=== PATIENT | female | born 1960 | race Caucasian/White ===

== ENCOUNTER 2020-10-12 09:03 | Outpatient (REF) | payer OTHER, SELFPAY | END 2020-10-12 09:04 | disposition home or self-care (01) | LOC: HO.LAB 09:03 | PROVIDERS: Visit Provider Internal Medicine | DX: Z20.822 Contact with and (suspected) exposure to COVID-19 (principal) | CPT/HCPCS: C9803; U0003; U0005 ==

== ENCOUNTER 2022-05-24 19:05 | Emergency (ER) | payer OTHER, SELFPAY ==
[2022-05-24 19:46] VITALS: BP 118/75; PULSE 99; RESP 18; TEMP 37.7; O2SAT 96; BMI 31.1
--- NOTE | 2022-05-24 19:46 | ED.GENADULT ---
HPI - General Adult General Chief complaint: Upper Respiratory Symptoms Stated complaint: Diff breathing Time Seen by Provider: 05/24/22 22:01 Source: patient Mode of arrival: ambulatory Limitations: no limitations History of Present Illness HPI narrative: 62 year old female presents w/ fever ( Tmax 100F), dry cough, chills, headache (diffuse, feels like typical headache, no vision changes, no dizziness, no trauma). Sister sick with similar sx. Denies chest pain, shortness of breath, nausea, vomiting, abdominal pain, vision changes, dizziness, head trauma, weakness. Thinks she has the flu Related Data Previous Rx's Medication Instructions Recorded albuterol sulfate 90 mcg/actuation 2 puff inhalation Q6H PRN 05/24/22 aerosol inhaler shortness of breath or wheezing #8.5 grams oseltamivir 75 mg capsule (Tamiflu) 75 mg PO BID 5 days #10 caps 05/24/22 prednisone 20 mg tablet 40 mg PO DAILY 5 days #10 tabs 05/24/22 Allergies Allergy/AdvReac Type Severity Reaction Status Date / Time No Known Allergies Allergy Unverified 02/13/20 15:50 [No Known Allergies*] Review of Systems Review of Systems: Constitutional : No Weight loss, + Fever, + Chills, + Fatigue, + Malaise ENT/Mouth : No sore throat, No Rhinorrhea Eyes: No Eye Pain, No Swelling, No Redness Cardiovascular : No Chest Pain, No SOB, No Dyspnea on Exertion, No Orthopnea, No Edema, No Palpitations Respiratory : + Cough, No Sputum, No Wheezing Gastrointestinal : No Nausea, No Vomiting, No Diarrhea, No Constipation, No abdominal Pain, No Hematochezia, No Melena Genitourinary : No Dysuria, No Urinary Frequency, No Hematuria, Musculoskeletal : No joint pain, No Myalgias, No Joint Swelling Skin : No Skin Lesions, No rash Neuro : No Weakness, No Numbness, No Dizziness, + Headache Psych : No Anxiety/Panic, No Depression All other systems reviewed and are negative Yes all other systems are reviewed and are negative [facility] Past Medical History Attestation statement: The following information was validated with the patient. Source: old records reviewed and nursing notes reviewed Social History Social History Advance Directives: No Advance Directives Information Provided: No Physical Exam ED Vital Signs: Vital Signs - 24 hr 05/24/22 19:46 05/24/22 21:39 05/24/22 21:52 Temperature 99.8 F Pulse Rate 99 105 H 104 H Respiratory Rate 18 18 18 Blood Pressure 118/75 115/76 Pulse Oximetry 96 95 Oxygen Delivery Method Room Air BMI result Body Mass Index 31.1 Vital signs stable Appearance: Alert.? Oriented X3.? No acute distress.? Head: Normocephalic, atraumatic, no step-offs or deformities Eyes: Pupils equal, round and reactive to light.? ENT: Pharynx normal.? Neck: Normal inspection.? Neck supple.? CVS: Normal heart rate and rhythm.? Pulses normal.? Respiratory: No respiratory distress.? Breath sounds normal.? Abdomen: Soft and nontender.? Skin: Skin warm and dry.? Normal skin color.? Normal skin turgor.? Extremities: No lower extremity edema.? No calf ttp. 5/5 strength to bilateral upper and lower extremities Neuro: Oriented X 3.? No motor deficit.? No sensory deficit. CN 2-12 intact . Ambulating with steady gait. Normal [id number], [id number]. Normal coordination. Negative Romberg. NIH stroke scale 0 Course Course Course Narrative: 1944 62 year old female presents w/ fever ( Tmax 100F), cough, chills, headache ( feels like typical headache, no vision changes, dizziness, no trauma). Sister sick with similar sx PE faint expiratory wheezing Plan viral panel Reevaluation(s) Reevaluation #1: Patient noted to be positive for COVID. Will send albuterol to her pharmacy. Advised to return with new or worsening symptoms. Tamiflu sent to her pharmacy. Educated patient on diagnosis and treatment plan, answered all question, patient verbalizes understanding. At this time patient will be discharged home, advised to return with new or worsening symptoms. Educated on worrisome signs and symptoms and when to return. At this time I feel comfortable w/ discharge home. At time of discharge patient feeling well. Vital signs stable saturating 96% on room air Time: 21:40 Medications Administered Discontinued Medications Generic Name Dose Route Start Last Admin Trade Name Freq PRN Reason Stop Dose Admin Albuterol Sulfate 7.5 mg/ 10 mg 05/24/22 19:50 05/24/22 21:51 Albuterol Sulfate 2.5 mg INHALE 05/24/22 19:51 10 mg ONCE ONE Administration Medical Decision Making Medical Decision Making [facility] Narrative: [birth year] 62-year-old female presents with flu-like symptoms. Reports sister with similar symptoms. Denies chest pain or shortness of breath. Physical examination with slight expiratory wheezing however vital signs stable and hemodynamically stable, patient appears well no acute distress. Headache likely secondary to viral infection, I do not suspect meningitis, intracranial hemorrhage, stroke, posterior stroke. Viral panel was obtained in triage Lab Data Labs: Lab Results 05/24/22 Range/Units 20:11 Influenza Type A (PCR) POSITIVE A (Negative) Influenza Type B (PCR) NEGATIVE (Negative) RSV RNA Qual (PCR) NEGATIVE (Negative) SARS-CoV-2 RNA (RT-PCR) NEGATIVE (Negative) Critical Care Time Critical Care Time Critical Care Time: No Discharge Plan Discharge Clinical Impression: Influenza Patient Disposition: Home, Self-Care Instructions: Influenza (ED) Additional Instructions: Take your medications as prescribed. If you were prescribed antibiotics today, it is important that you take your medication to their entirety, do not skip any doses, do not finish them early. Follow-up with your primary care provider this week. Return to the emergency department with new or worsening symptoms. Such as fevers, chills, chest pain, shortness of breath, nausea, vomiting, dizziness, headache, vision changes, lethargy In case of emergency call 911 Your contagious!. Wash your hands well. Hydrate well. Eat healthy foods. You can take ibuprofen every 6 hours, Tylenol every 4 hours as needed for pain or discomfort or fevers Prescriptions: New oseltamivir [Tamiflu] 75 mg capsule 75 mg PO BID 5 Days Qty: 10 0RF albuterol sulfate 90 mcg/actuation HFA aerosol inhaler 2 puff inhalation Q6H PRN (Reason: shortness of breath or wheezing) Qty: 8.5 0RF prednisone 20 mg tablet 40 mg PO DAILY 5 Days Qty: 10 0RF Referrals: Lorna Nice MD [Primary Care Provider] - 2 days Stand Alone Forms: Work/School Release
[2022-05-24 21:04] LABS: Influenza A PCR POSITIVE (Negative); Influenza B PCR NEGATIVE (Negative); Resp Syncy Virus RNA Qual PCR NEGATIVE (Negative); SARS COV2 PCR INHOUSE NEGATIVE (Negative)
[2022-05-24 21:39] VITALS: BP 115/76; PULSE 105; RESP 18; O2SAT 95
[2022-05-24] MEDS: Albuterol Sulfate 7.5 MG, Albuterol Sulfate (0.083%) 2.5 MG 10 MG INHALE (21:51)
[2022-05-24 21:52] VITALS: PULSE 104; RESP 18
== END 2022-05-24 22:42 | disposition home or self-care (01) ==
PROVIDERS: Physician Assistant; Emergency Provider Internal Medicine; PCP Internal Medicine
DX: J10.1 Influenza due to other identified influenza virus with other respiratory manifestations (principal); R06.02 Shortness of breath; R05.9 Cough, unspecified; Z20.822 Contact with and (suspected) exposure to COVID-19
CPT/HCPCS: 0241U; 94640; 99283; 99284

== ENCOUNTER 2022-05-25 07:04 | Inpatient (IN) | payer OTHER, SELFPAY ==
[2022-05-25] VITALS (7 sets, daily range): BP systolic 120–148; BP diastolic 58–92; PULSE 54–110; RESP 14–22; TEMP 36.5–37.2; O2SAT 96–100; BMI 32.0; BMI 33.2
--- NOTE | ~2022-05-25 | XR_ITS ---
EXAMINATION: XR CHEST CLINICAL INFORMATION: Shortness of breath COMPARISON: Previous chest x-ray most recent June 2019 TECHNIQUE: Frontal view of the chest was obtained. FINDINGS: The cardiac silhouette is enlarged. There is pulmonary venous redistribution and increased perihilar markings. There may be a denser hilar airspace disease at the right lung base. Differential would include pulmonary edema and airways disease. There may be a small right pleural effusion. There is no left pleural effusion. There is no pneumothorax. No acute bone abnormality. XR/XR chest 1V IMPRESSION: Question mild CHF. Differential would include airways disease. Clinical correlation recommended.
--- NOTE | 2022-05-25 07:18 | ECG_ITS ---
Test Reason : sob Blood Pressure : / mmHG Vent. Rate : 112 BPM Atrial Rate : 112 BPM P-R Int : 150 ms QRS Dur : 100 ms QT Int : 340 ms P-R-T Axes : 050 001 064 degrees QTc Int : 464 ms Sinus tachycardia Minimal voltage criteria for LVH, may be normal variant ( Thong product ) Borderline ECG When compared to the previous EKG of No significant changes seen Referred By: Anika Shepherd Electronically Signed By:RE ARTHUR MD
--- NOTE | 2022-05-25 07:19 | ED_ITS ---
HPI - SOB/Dyspnea General Chief Complaint: Upper Respiratory Symptoms Stated Complaint: sob, FLU+ Time Seen by Provider: 05/25/22 07:14 Source: patient Mode of arrival: EMS History of Present Illness HPI Narrative: 62-year-old female who presents via EMS this morning after being diagnosed with influenza a last night with significant increasing of shortness of breath and increased work of breathing. Patient states that ?I do not feel well and I was unable to berry picker the medications a were ordered for me last night?. She denies any chest pain but states that she does take Lasix. Related Data Home Medications Medication Instructions Recorded Confirmed acetaminophen 325 mg tablet 650 mg PO Q6H PRN Pain 05/25/22 05/25/22 (Tylenol) carvedilol 6.25 mg tablet 1 tab PO BID 05/25/22 05/25/22 furosemide 20 mg tablet 1 tab PO DAILY PRN Weight Gain or 05/25/22 05/25/22 shortness of breath rosuvastatin 40 mg tablet 1 tab PO DAILY 05/25/22 05/25/22 sacubitril 24 mg-valsartan 26 mg 1 tab PO BID 05/25/22 05/25/22 tablet (Entresto) spironolactone 25 mg tablet 1 tab PO DAILY 05/25/22 05/25/22 Previous Rx's Medication Instructions Recorded albuterol sulfate 90 mcg/actuation 2 puff inhalation Q6H PRN 05/24/22 aerosol inhaler shortness of breath or wheezing #8.5 grams oseltamivir 75 mg capsule (Tamiflu) 75 mg PO BID 5 days #10 caps 05/24/22 prednisone 20 mg tablet 40 mg PO DAILY 5 days #10 tabs 05/24/22 Allergies Allergy/AdvReac Type Severity Reaction Status Date / Time No Known Allergies Allergy Unverified 02/13/20 15:50 [No Known Allergies*] Review of Systems Review of Systems: Pertinent positives and negatives as stated in HPI PMFSH Past Medical History Source: nursing notes reviewed Social History Social History Advance Directives: No Advance Directives Information Provided: No Physical Exam Vital Signs: Vital Signs: Last Vital Signs Temp 99.0 F 05/25/22 07:15 Pulse 110 H 05/25/22 07:15 Resp 20 05/25/22 07:15 BP 148/92 H 05/25/22 07:15 Pulse Ox 96 05/25/22 07:15 O2 Del Method 05/25/22 07:15 BMI result Body Mass Index 32.0 VITAL SIGNS: Reviewed. GENERAL: Well developed, well nourished, in no acute distress. HEAD: Normocephalic/atraumatic EYES: PERRLA, EOMI EARS: Ext canals without abnormality OROPHARYNX: no oral lesions noted, posterior pharynx clear LUNGS: Decreased breath sounds bilaterally with coarse rales and scattered expiratory wheeze, tachypnea present with significant increased work of breathing. SpO2<96> 2 L nasal cannula CARDIOVASCULAR: Regular rate and rhythm without noted murmurs, no JVD but 1+ pitting edema in bilateral lower extremities. ABDOMEN: Soft, non-tender, non-distended with bowel sounds. SKIN: Inspection of the skin reveals no rashes NEUROLOGIC: Alert and oriented x 4. Strength and sensation to light touch were grossly intact x 4. Course Course Course Narrative: 62-year-old female who I reviewed her lab work and she is noted to have a BNP of over 2000 with a positive chest x-ray and clinical findings to further corroborate severe CHF exacerbation. She already received diuretics, is feeling better with supplemental oxygen but remains mildly tachycardic. Otherwise labs are chronically stable and the noted troponin of 40.4 was repeated and remains flat and is likely reflective of patient's underlying influenza a and CHF exacerbation. She denies any current chest pain. This case was discussed with inpatient hospitalist who accepts admission. Medications Administered Discontinued Medications Generic Name Dose Route Start Last Admin Trade Name Freq PRN Reason Stop Dose Admin Furosemide 60 mg 05/25/22 07:18 05/25/22 07:35 Furosemide 100 Mg/10 Ml Vial IVPUSH 05/25/22 07:19 60 mg ONCE ONE Administration Protocol Oseltamivir Phosphate 75 mg 05/25/22 08:37 05/25/22 08:45 Oseltamivir Phosphate 75 Mg Capsule PO 05/25/22 08:38 75 mg ONCE ONE Administration Medical Decision Making Medical Decision Making MDM Narrative: 62-year-old female with recent diagnosis of influenza a and suspect that symptoms and respiratory aspect of this viral illness may have exacerbated patient's underlying CHF. She was immediately placed on 2 L of nasal cannula and given 60 mg of Lasix after IV access was obtained. Labs and x-ray were then ordered. Differential Diagnosis Differential Diagnoses: The differential diagnosis associated with the presentation includes Pneumonia, CHF exacerbation Admission/Observation Consideration of admission/observation: Escalation of care including admission/observation considered Will consider admission due to underlying medical comorbidities in the context influenza a infection. Consult Healthcare Provider Management of the patient was discussed with: Hospitalist I discussed this case with Hospital given the degree of patient's symptoms and CHF exacerbation Lab Data MDM Lab Attestation statement: I reviewed the patient's lab results. Please see course Section for discussion. Result Diagrams: 05/25/22 07:31 05/25/22 07:31 Labs: Lab Results 05/25/22 05/25/22 05/25/22 Range/Units 07:31 07:31 07:31 WBC 6.6 (4.8-10.8) X10*3/uL RBC 3.63 L (4.20-5.50) X10*6/uL Hgb 9.9 L (12.0-16.0) g/dl Hct 31.6 L (37.0-47.0) % MCV 87.1 (80.0-98.0) fL MCH 27.3 (27.0-33.0) pg MCHC 31.3 (31.0-35.0) g/dl RDW 14.5 (11.0-16.0) % Plt Count 216 (160-400) X10*3/uL MPV 9.5 (9.4-12.3) fL Immature Gran % (Auto) 0.3 (0.0-0.4) % Neut % (Auto) 81.7 H (45-73) % Lymph % (Auto) 10.1 L (20-40) % [place] % (Auto) 7.2 (2-11) % Eos % (Auto) 0.2 (0-4) % Baso % (Auto) 0.5 (0-2) % Lymph # (Auto) 0.7 L (1.2-4.9) X10*3/uL [place] # (Auto) 0.5 (0.1-1.2) X10*3/uL Eos # (Auto) 0.0 (0.0-0.4) X10*3/uL Baso # (Auto) 0.0 (0.0-0.2) X10*3/uL Abs Immat Gran (auto) 0.02 (0.00-0.03) X10*3/uL Absolute Neuts (auto) 5.4 (2.0-8.3) x10*3/uL Absolute Nucleated RBC 0.000 (0.0-0.012) X10*3/uL Nucleated RBC % (auto) 0.0 (0.0-0.2) /100WBC PT 16.1 H (10.0-13.1) SEC INR 1.4 H (0.9-1.1) Sodium (135-145) mmol/L Potassium (3.3-5.1) mmol/L Chloride (96-108) mmol/L Carbon Dioxide (22-29) mmol/L Anion Gap (12-20) BUN (9-16) mg/dL Creatinine (0.5-1.4) mg/dL Estim Creat Clear Calc Estimated GFR Random Glucose (60-115) mg/dL Calcium (8.4-10.2) mg/dL Total Bilirubin (0.0-1.0) mg/dL AST (5-31) U/L ALT (0-31) U/L Alkaline Phosphatase (39-117) U/L Troponin I High Sens (<3.5-17.0) ng/L B-Natriuretic Peptide 2066 H (<100) pg/mL Total Protein (6.5-8.0) g/dL Albumin (3.5-5.0) g/dL 05/25/22 05/25/22 05/25/22 Range/Units 07:31 07:31 08:41 WBC (4.8-10.8) X10*3/uL RBC (4.20-5.50) X10*6/uL Hgb (12.0-16.0) g/dl Hct (37.0-47.0) % MCV (80.0-98.0) fL MCH (27.0-33.0) pg MCHC (31.0-35.0) g/dl RDW (11.0-16.0) % Plt Count (160-400) X10*3/uL MPV (9.4-12.3) fL Immature Gran % (Auto) (0.0-0.4) % Neut % (Auto) (45-73) % Lymph % (Auto) (20-40) % [place] % (Auto) (2-11) % Eos % (Auto) (0-4) % Baso % (Auto) (0-2) % Lymph # (Auto) (1.2-4.9) X10*3/uL [place] # (Auto) (0.1-1.2) X10*3/uL Eos # (Auto) (0.0-0.4) X10*3/uL Baso # (Auto) (0.0-0.2) X10*3/uL Abs Immat Gran (auto) (0.00-0.03) X10*3/uL Absolute Neuts (auto) (2.0-8.3) x10*3/uL Absolute Nucleated RBC (0.0-0.012) X10*3/uL Nucleated RBC % (auto) (0.0-0.2) /100WBC PT (10.0-13.1) SEC INR (0.9-1.1) Sodium 139 (135-145) mmol/L Potassium 3.9 (3.3-5.1) mmol/L Chloride 106 (96-108) mmol/L Carbon Dioxide 24 (22-29) mmol/L Anion Gap 13 (12-20) BUN 14 (9-16) mg/dL Creatinine 1.11 (0.5-1.4) mg/dL Estim Creat Clear Calc 51.9 Estimated GFR 50 Random Glucose 135 H (60-115) mg/dL Calcium 8.5 (8.4-10.2) mg/dL Total Bilirubin 0.9 (0.0-1.0) mg/dL AST 48 H (5-31) U/L ALT 70 H (0-31) U/L Alkaline Phosphatase 74 (39-117) U/L Troponin I High Sens 40.4 H 48.2 H (<3.5-17.0) ng/L B-Natriuretic Peptide (<100) pg/mL Total Protein 7.0 (6.5-8.0) g/dL Albumin 4.0 (3.5-5.0) g/dL Independent Interpretation I performed an independent interpretation of an: EKG Interpretation: Sinus tachycardia, HR-112, no STEMI, DC/QRS/QTC are within normal limits. Radiology Impression Radiologist Impression: My interpretation is in agreement with radiology's impression imaging study. External Record Review External record reviewed: Outpatient record and Prior outpatient labs Critical Care Time Critical Care Time Critical Care Time: Yes Total Critical Care Time: 45 Attestation: I personally attest to this time spent taking care of the patient. Discharge Plan Discharge Clinical Impression: CHF exacerbation, Viral syndrome, Influenza A Patient Disposition: Admitted As Inpatient
[2022-05-25 07:35] LABS: MANUAL DIFF FLAG NO
[2022-05-25] MEDS: Furosemide 100 MG/10 ML VIAL 60 MG IVPUSH (07:35)
[2022-05-25 07:38] LABS: Basophils Percent Auto 0.5 % (0-2); Eosinophils Percent Auto 0.2 % (0-4); Hematocrit 31.6 % (37.0-47.0); Hemoglobin 9.9 g/dl (12.0-16.0); Imm Gran Abs Auto 0.02 X10*3/uL (0.00-0.03); Imm Gran Pct Auto 0.3 % (0.0-0.4); Lymphocytes Absolute Auto 0.7 X10*3/uL (1.2-4.9); Lymphocytes Percent Auto 10.1 % (20-40); Mean Corpuscular HGB Conc 31.3 g/dl (31.0-35.0); Mean Corpuscular Hemoglobin 27.3 pg (27.0-33.0); Mean Corpuscular Volume 87.1 fL (80.0-98.0); Mean Platelet Volume 9.5 fL (9.4-12.3); Monocytes Absolute Auto 0.5 X10*3/uL (0.1-1.2); Monocytes Percent Auto 7.2 % (2-11); Neutrophils Absolute Auto 5.4 x10*3/uL (2.0-8.3); Neutrophils Percent Auto 81.7 % (45-73); Platelet Count 216 X10*3/uL (160-400); Red Blood Count 3.63 X10*6/uL (4.20-5.50); Red Cell Distribution Width 14.5 % (11.0-16.0); White Blood Count 6.6 X10*3/uL (4.8-10.8)
[2022-05-25 07:58] LABS: INTERNATIONAL NORM RATIO 1.4 (0.9-1.1); Prothrombin Time 16.1 SEC (10.0-13.1)
[2022-05-25 08:08] LABS: Alanine Aminotransferase 70 U/L (0-31); Alkaline Phosphatase 74 U/L (39-117); Anion Gap 13 (12-20); Aspartate Amino Transferase 48 U/L (5-31); Bilirubin Total 0.9 mg/dL (0.0-1.0); Blood Urea Nitrogen 14 mg/dL (9-16); Calcium 8.5 mg/dL (8.4-10.2); Carbon Dioxide 24 mmol/L (22-29); Chloride 106 mmol/L (96-108); Creatinine Clr Calc Pharmacy 51.9; Estimated Glomerular Filt Rate 50; Glucose Random 135 mg/dL (60-115); Potassium 3.9 mmol/L (3.3-5.1); Sodium 139 mmol/L (135-145)
[2022-05-25 08:09] LABS: B Type Natriuretic Peptide 2066 pg/mL (<100)
[2022-05-25 08:12] LABS: Troponin-I High Sensitivity 40.4 ng/L (<3.5-17.0)
[2022-05-25] MEDS: Oseltamivir Phosphate 75 MG CAPSULE PO (08:45)
[2022-05-25 09:11] LABS: Troponin-I High Sensitivity 48.2 ng/L (<3.5-17.0)
--- NOTE | 2022-05-25 09:26 | PHA.MEDREC ---
Addendum entered by Valdo Acevedo 05/25/22 09:39: WENT TO GO TALK TO PATIENT AGAIN FOR CLARIFICATIONS AFTER PHARMACY CALL. PATIENT ADMITS TO NOT BEING ADHERENT TO ROSUVASTATIN MEDICATION. STATES PHARMACY 40MG AUGUST 2021 DOSE IS CORRECT. Original Note: Pharmacy Consult ? Medication Reconciliation Pharmacy has completed the medication reconciliation. Patient hasn't picked up or taken tamiflu, prednisone, and albuterol at time of note. Patient also states that they are on rosuvastatin 10mg daily, however no claim history to support. Called pharmacy and they state patient was on rosuvastatin 40mg daily back in august 2021, but no recent fills since then.
--- NOTE | 2022-05-25 11:16 | P.HPHOSP_ITS ---
History of Present Illness Date of Service: 05/25/22 Chief Complaint: shortness of breath This is a 62 yo F with a PMH of CHF, HTN, HLD who presents to the ED for the second time in 2 days (pt presented to the ED day [employer] and was diagnosed with influenza and discharged home with tamiflu, albuterol and prednisone) complaints of shortness of breath and generalized malaise. The patient states that 2 days prior to admission, she began feeling unwell. It started with a headache, progressed to body aches and eventually to shortness of breath. She endorsed fevers (objectively - measured 102 at home) and chills. Reports non-productive cough. She reports no sick contacnts. Upon specific questioning about the shortness of breath, she endorses that she has actually been having trouble breathing (particularly in the supine position) even prior to the recent illness. She states that she has been recently re-started on lasix (was on it after her diagnosis of CHF in 2017, but was taken off at some point and was restarted about 2 weeks ago). She reports weight gain of at least 5 lbs - unclear duration. She denies chest pain. She does report PND and non-productive cough. She denies dietary indiscretion (even during the holiday season) and reports she generally eats a low salt diet. ED work up reveals a BNP > 2000 and a CXR consistent with CHF. She has been given tamiflu and total IV lasix 60. She continues to feel short of breath with increased RR and tachycardia. She is on supplemental O2 at 2L. She will be admitted for acute CHF exacerbation. Review of Systems Review of Systems: negative except HPI [facility] Medical History (Updated 05/25/22 @ 19:02 by Rene Dubose MD) CHF (congestive heart failure) Hyperlipidemia Hypertension Pertinent family history: CAD in mother Cancer ( ? head/neck) in father Surgical History (Updated 05/25/22 @ 19:02 by Rene Dubose MD) No pertinent past surgical history Social History (Updated 05/25/22 @ 19:03 by Rene Dubose MD) Alcohol intake: never Patient Tobacco Use Status: Former Tobacco user Quit Date: Use of substances other than those prescribed or required for medical reasons: No Advance Directives: No Advance Directives Information Provided: No Meds Allergies Allergy/AdvReac Type Severity Reaction Status Date / Time No Known Allergies Allergy Unverified 02/13/20 15:50 [No Known Allergies*] Active Medications: Current Medications Pharmacy Consult (Consult Rx Perform Med Rec) 1 each MISCELLANE ONCE PRN PRN Reason: Consult order Home Medications Medication Instructions Recorded Confirmed Last Taken Type acetaminophen 325 mg tablet 650 mg PO Q6H PRN Pain 05/25/22 05/25/22 Unknown History (Tylenol) carvedilol 6.25 mg tablet 1 tab PO BID 05/25/22 05/25/22 05/24/22 History furosemide 20 mg tablet 1 tab PO DAILY PRN Weight Gain or 05/25/22 05/25/22 05/24/22 History shortness of breath rosuvastatin 40 mg tablet 1 tab PO DAILY 05/25/22 05/25/22 Unknown History sacubitril 24 mg-valsartan 26 mg 1 tab PO BID 05/25/22 05/25/22 05/24/22 History tablet (Entresto) spironolactone 25 mg tablet 1 tab PO DAILY 05/25/22 05/25/22 05/24/22 History Physical Exam Vital Signs and Narrative: Vital Signs: Last Vital Signs Temp 99.0 F 05/25/22 07:15 Pulse 106 H 05/25/22 11:11 Resp 14 05/25/22 11:11 BP 132/67 05/25/22 11:11 Pulse Ox 96 05/25/22 11:11 O2 Del Method 05/25/22 07:15 BMI result Body Mass Index 32.0 Const: Other: Constitutional - Awake and Alert, comfortable in sitting position with increased discomfort in supine Eyes - PERRLA, EOMI Cardiovascular - S1S2, RRR, +JVD, 2+ b/l LE edema; unable to lay in the supine position Respiratory - Rales b/l in the lower zones; scattered rhonchi Gastrointestinal - NT / ND; +BS; No rebound or guarding - No CVA tenderness Extremities - no calf tenderness bilaterally Musculoskeletal - Normal inspection, normal ROM Skin - Warm/Dry Neurological - Alert & oriented x3, No focal deficit Psychological - Appropriate affect Results Labs CBC and Chem 7: 05/25/22 07:31 05/25/22 07:31 Labs: Laboratory Results - last 24 hr 05/25/22 05/25/22 05/25/22 07:31 07:31 07:31 MCV 87.1 MCH 27.3 MCHC 31.3 RDW 14.5 Plt Count 216 MPV 9.5 Immature Gran % (Auto) 0.3 Neut % (Auto) 81.7 H Lymph % (Auto) 10.1 L [place] % (Auto) 7.2 Eos % (Auto) 0.2 Baso % (Auto) 0.5 Lymph # (Auto) 0.7 L [place] # (Auto) 0.5 Eos # (Auto) 0.0 Baso # (Auto) 0.0 Abs Immat Gran (auto) 0.02 Absolute Neuts (auto) 5.4 Absolute Nucleated RBC 0.000 Nucleated RBC % (auto) 0.0 PT 16.1 H INR 1.4 H Anion Gap Estim Creat Clear Calc Estimated GFR Random Glucose Calcium Total Bilirubin AST ALT Alkaline Phosphatase Troponin I High Sens B-Natriuretic Peptide 2066 H Total Protein Albumin 05/25/22 05/25/22 05/25/22 07:31 07:31 08:41 MCV MCH MCHC RDW Plt Count MPV Immature Gran % (Auto) Neut % (Auto) Lymph % (Auto) [place] % (Auto) Eos % (Auto) Baso % (Auto) Lymph # (Auto) [place] # (Auto) Eos # (Auto) Baso # (Auto) Abs Immat Gran (auto) Absolute Neuts (auto) Absolute Nucleated RBC Nucleated RBC % (auto) PT INR Anion Gap 13 Estim Creat Clear Calc 51.9 Estimated GFR 50 Random Glucose 135 H Calcium 8.5 Total Bilirubin 0.9 AST 48 H ALT 70 H Alkaline Phosphatase 74 Troponin I High Sens 40.4 H 48.2 H B-Natriuretic Peptide Total Protein 7.0 Albumin 4.0 Imaging Radiologist's Impressions: Impressions Chest X-Ray 05/25/22 08:02 IMPRESSION: Question mild CHF. Differential would include airways disease. Clinical correlation recommended. Assessment and Plan (1) CHF exacerbation: Status: Acute Plan This is a 62 yo F who presents to the ED in less than 24 hours after initially presenting for shortness of breath. She was diagnosed with influenza and not is exhibiting signs and symptoms of acute CHF exacerbation. She will be admitted for further treatment. 1. Acute CHF (unspecified) exacerbation suspected systolic CHF, but pt endorses last echo > 1 year, hence will check echo on lasix 20mg daily at home -- will increase to 40mg IV BID I/O; daily weights if not improving, consider cardiology consult low salt diet hold coreg today, restart once CHF improved continue entresto/aldactone 2. Influenza A infection symptoms started about 48 hours ago -- will continue tamiflu (renally dosed -- ClCr less than 60, if improves, change to regular dose) 3. HTN continue baseline meds; hold coreg 4. HLD statin 5. Obesity diet/exercise encouraged Full Code DVT pptx, Marichuy Endorses daughter as HCP Time Spent With Patient Time: Total time managing care of this patient today ____ minutes. Quality Stroke Does the patient have a stroke diagnosis?: No VTE Prior VTE?: No VTE Risk Level:: Medical - moderate - high VTE Device Contraindication: Treatment Not Indicated VTE Drug Contraindication: N/A - Med Ordered
--- NOTE | 2022-05-25 12:00 | CA_ITS ---
Transthoracic Echocardiogram Patient (Last, First, Middle): Ines Young, Gender: Female Date of : 1960 Age: 62 Procedure Date: 05/25/2022 Procedure Type: Transthoracic Echocardiogram Location[place] [facility] [place] Height: 157.48 cm Weight: 79.38 kg BSA: 1.81 m2 Heart Rate: bpm BP: 132 / 67 mmHg Tip Mender: Referring MD: Rene Dubose MD Headliner Installer: Anthony Worthington MD Symptoms: CHF, to eval LV function; last echo > 1 year ago Study Quality: Adequate ECG Rhythm: Sinus Conclusions: - 1. Severely dilated left ventricle with severe LV systolic dysfunction with LVEF of 15-20% with restrictive filling pattern 2. Moderately dilated right ventricle with normal RV systolic function 3. Biatrial enlargement, left greater than right 4. Severe mitral regurgitation secondary to ventricular pathology 5. Moderate tricuspid regurgitation with moderately elevated right ventricular systolic pressure 6. No gross pericardial effusion Findings Left Ventricle Severely increased left ventricular cavity size. The left ventricular systolic function is severely decreased. The visually estimated ejection fraction is between 15-20%. There is severe global hypokinesis. Spectral Doppler is indicative of a restrictive filling pattern. Right Ventricle Moderately increased right ventricular cavity size. There is normal right ventricular systolic function. Atria The left atrium is moderately dilated. There is no evidence of interatrial shunt. The right atrium is mildly dilated. Aortic Valve Normal aortic valve structure and function. There is no aortic valve stenosis. There is no aortic valve regurgitation. Mitral Valve There is mild anterior and posterior mitral leaflet thickening. There is severe mitral valve regurgitation. There is no mitral valve stenosis. Pulmonic Valve The pulmonic valve is likely normal. Tricuspid Valve Normal tricuspid valve structure. There is moderate to severe tricuspid valve regurgitation. Mildly elevated right atrial pressure. Moderate pulmonary hypertension is present. Great Vessels All visible segments of the aorta are normal in size. The pulmonary artery was not well visualized. Venous The inferior vena cava is mildly dilated and collapses less than 50% with inspiration. Pericardium/Pleural There is no evidence of pericardial effusion. Prior Study Comparison Changes noted compared to prior study dated: 10/08/2016. LV cavity is further dilated Measurements 2D Linear Measurements IVSd: 0.86 0.6-0.9/0.6-1.0 cm LVIDd: 7.32 3.9-5.3/4.2-5.9 cm LVIDd Index: 4.04 2.4-3.2/2.2-3.1 cm/m2 LVIDs: 6.38 2.0-3.6 cm LVPWd: 0.96 0.7-1.1 cm Ao Root: 2.60 2.1-3.5 cm LA Diam: 4.50 2.7-3.8/3.0-4.0 cm LAIDs Index: 2.49 1.5-2.3 cm/m2 LV Mass: 383.84 67-162/88-224 g LV Mass Index: 212.07 43-95/49-115 g/m2 LVOT Diam: 2.00 3.0+(-)1.3 cm 2D Systolic Function EF 4C: 21.10 >55% EF 2C: 16.60 >55% EF BiP: 15.90 >55% Mitral Valve MV Pk Prince: 4.83 MV Pk Grad: 93.00 MV Pk E: 1.35 MV PK A: 0.80 MV Decel Time: 110.00 E/A: 1.70 E'Lateral: 9.03 E'Medial: 5.44 E/E' Med: 24.80 E/E' Lat: 15.00 PHT: 32.00 MVA PHT: 6.88 Decel Miller: 12.27 MR Vol - PW Dopp: 40.92 MR VTI: 1.32 MR ERO: 31.00 MR Alias Prince: 0.37 MR RAD: 0.80 Aortic Valve AoV Pk Prince: 1.21 AoV Mn Prince: 0.82 AoV VTI: 0.20 AoV Pk Grad: 6.00 Aov Mn Grad: 3.00 JARET Cont.VTI: 2.02 LVOT LVOT Pk Prince: 0.88 LVOT Mn Prince: 0.56 LVOT VTI: 0.13 LVOT Pk Grad: 3.00 LVOT Mn Grad: 2.00 LVOT Diam: 2.00 LVOT Area: 3.14 Diastolic Function MV Pk E: 1.35 MV Pk A: 0.80 E/A: 1.70 E'Medial: 5.44 E/E' Med: 24.80 E' Laterial: 9.03 E/E' Lat: 15.00 Right Ventricle TAPSE (mm): 21.00 TVS' Prince: 11.00 Tricuspid Valve TR Pk Prince: 3.40 TR Pk Grad: 46.00 RA Press: 8.00 RVSP: 54.00 Great Vessels Aorta Ao Root-2D: 2.60 2.0-3.7 cm Ao Asc: 2.70 2.1-3.4 cm Pulmonary Valve PV Pk Prince: 1.07 Peak PV Grad: 5.00 Updated in Other Vendor System with Status of Final Anthony Worthington MD electronically signed on 05/25/2022 4:46:40 PM with status of Final
[2022-05-25] MEDS: Enoxaparin Sodium 40 MG/0.4 ML SYRINGE SUBCUT (12:08)
[2022-05-25] MEDS: Acetaminophen 325 MG TABLET 650 MG PO (12:08)
[2022-05-25] MEDS: 0.9 % Sodium Chloride Flush 3 ML SYRINGE IVFLUSH (15:30)
[2022-05-25] MEDS: Furosemide 40 MG/4 ML VIAL IVPUSH (17:41)
[2022-05-25 19:46] LABS: IDNOW Serial# BCCEAD1C; Influenza A Positive (Negative); Influenza B2 Negative (Negative)
[2022-05-25 19:47] LABS: COVID-19 Test Negative (Negative); IDNOW Serial# 55D5AD1C
--- NOTE | 2022-05-25 19:51 | PC.NURSE ---
report Received from ESTHER Recio pt is alert and oriented resting in bed no signs of acute distress notice breathing equally unlabored report given to ESTHER Romero
--- NOTE | 2022-05-25 21:13 | MHC.CM.PN ---
CM met with admitted patient with bed assignment/awaiting transfer. + Influenza. Lives alone. No DME. Has [employer] [facility] [employer] x[facility]. HCP at home. HCP/daughter Ines Agrawal ([phone]). D/C plan: home with existing [employer]. Pt to arrange transport. CM to follow for discharge planning.
[2022-05-25] MEDS: Sacubitril/Valsartan 24/26 1 TAB TABLET PO (21:23)
[2022-05-25] MEDS: Oseltamivir Phosphate 30 MG CAPSULE PO (21:24)
[2022-05-26 04:00] VITALS: BP 133/81; PULSE 95; RESP 18; TEMP 37.1; O2SAT 98
[2022-05-26 05:41] VITALS: BMI 33.0
[2022-05-26 07:09] LABS: Anion Gap 13 (12-20); Blood Urea Nitrogen 20 mg/dL (9-16); Calcium 8.9 mg/dL (8.4-10.2); Carbon Dioxide 28 mmol/L (22-29); Chloride 105 mmol/L (96-108); Creatinine Clr Calc Pharmacy 49.6; Estimated Glomerular Filt Rate 47; Glucose Random 91 mg/dL (60-115); Potassium 3.6 mmol/L (3.3-5.1); Sodium 142 mmol/L (135-145)
[2022-05-26] MEDS: Spironolactone 25 MG TABLET PO (08:38)
[2022-05-26] MEDS: Atorvastatin Calcium 80 MG TABLET PO (08:38)
[2022-05-26] MEDS: Furosemide 40 MG/4 ML VIAL IVPUSH ×2 (08:39→17:22)
[2022-05-26] MEDS: Oseltamivir Phosphate 30 MG CAPSULE PO ×2 (08:39→20:04)
[2022-05-26] MEDS: Sacubitril/Valsartan 24/26 1 TAB TABLET PO ×2 (08:39→20:04)
[2022-05-26 08:41] VITALS: BP 132/79; PULSE 94; RESP 18; TEMP 36.6; O2SAT 96
[2022-05-26] MEDS: 0.9 % Sodium Chloride Flush 3 ML SYRINGE IVFLUSH ×2 (08:42→17:21)
[2022-05-26] MEDS: Enoxaparin Sodium 40 MG/0.4 ML SYRINGE SUBCUT (11:30)
[2022-05-26] MEDS: guaiFENesin 200 MG/10 ML 10 ML LIQUID PO ×2 (11:30→17:23)
[2022-05-26 12:00] VITALS: BP 100/55; PULSE 93; RESP 12; TEMP 37.4; O2SAT 95
--- NOTE | 2022-05-26 13:17 | HO.PM.IMPN ---
Subjective Subjective Date of Service: 05/26/22 Interval History: Seen in follow-up for acute CHF exacerbation and influenza Interval history: Patient reporting cough with pleuritic chest pain. Still endorsing orthopnea but comfortable sitting up in bed eating breakfast on exam. She has no other complaints at this time Review of Systems Review of Systems: Yes all other systems are reviewed and are negative Physical Exam Vital Signs: Vital Signs: Last Vital Signs Temp 99.3 F 05/26/22 12:00 Pulse 93 05/26/22 12:00 Resp 12 05/26/22 12:00 BP 100/55 L 05/26/22 12:00 Pulse Ox 95 05/26/22 12:00 O2 Del Method 05/26/22 12:00 O2 Flow Rate 2 05/25/22 17:39 BMI result Body Mass Index 33.0 Constitutional - Awake and Alert, No apparent distress Eyes - PERRLA, EOMI Cardiovascular - S1S2, RRR, No edema Respiratory - Normal lung expansion, Normal respiratory effort, No respiratory distress, fine crackles bilaterally Gastrointestinal - NT / ND; +BS; No rebound or guarding Extremities - no calf tenderness bilaterally, no swelling Skin - Warm/Dry Neurological - Alert & oriented x3 Psychological - Appropriate affect Objective Data Active Medications Acetaminophen (Acetaminophen 325 Mg Tablet) 650 mg PO Q6H PRN PRN Reason: Pain, Mild (Pain Scale 1-3) Last Admin: 05/25/22 12:08 Dose: 650 mg Documented By: EYAL Atorvastatin Calcium (Atorvastatin Calcium 80 Mg Tablet) 80 mg PO DAILY [facility] Last Admin: 05/26/22 08:38 Dose: 80 mg Documented By: NICHOLAS Enoxaparin Sodium (Enoxaparin Sodium 40 Mg/0.4 Ml Syringe) 40 mg SUBCUT Q24H [facility] Last Admin: 05/26/22 11:30 Dose: 40 mg Documented By: NICHOLAS Furosemide (Furosemide 40 Mg/4 Ml Vial) 40 mg IVPUSH BID@0900,1800 [facility]; Protocol Last Admin: 05/26/22 08:39 Dose: 40 mg Documented By: NICHOLAS Guaifenesin (Guaifenesin 200 Mg/10 Ml 10 Ml Liquid) 10 ml PO Q4H PRN PRN Reason: Cough Last Admin: 05/26/22 11:30 Dose: 10 ml Documented By: NICHOLAS Ondansetron HCl (Ondansetron Hcl 4 Mg/2 Ml Vial) 4 mg IVPUSH Q8H PRN PRN Reason: Nausea and Vomiting Oseltamivir Phosphate (Oseltamivir Phosphate 30 Mg Capsule) 30 mg PO Q12H [facility] Stop: 05/29/22 20:01 Last Admin: 05/26/22 08:39 Dose: 30 mg Documented By: NICHOLAS Pharmacy Consult (Consult Rx Perform Med Rec) 1 each MISCELLANE ONCE PRN PRN Reason: Consult order Sacubitril/Valsartan (Sacubitril/Valsartan 1 Tab Tablet) 1 tab PO BID [facility]; Protocol Last Admin: 05/26/22 08:39 Dose: 1 tab Documented By: NICHOLAS Sodium Chloride (0.9 % Sodium Chloride Flush 3 Ml Syringe) 3 ml IVFLUSH QSHIFT [facility] Last Admin: 05/26/22 08:42 Dose: 3 ml Documented By: NICHOLAS Spironolactone (Spironolactone 25 Mg Tablet) 25 mg PO DAILY [facility]; Protocol Last Admin: 05/26/22 08:38 Dose: 25 mg Documented By: NICHOLAS Labs CBC & Chem 7: 05/25/22 07:31 05/26/22 05:51 Labs: Laboratory Results - last 24 hr 05/25/22 05/25/22 05/26/22 19:18 19:18 05:51 Anion Gap 13 Estim Creat Clear Calc 49.6 Estimated GFR 47 Random Glucose 91 Calcium 8.9 COVID-19 (STACEY) Negative COVID-19 Clin Com See Note Influenza Type A (SALONI) Positive A Influenza Type B (SALONI) Negative Influenza A & B Note See Note Assessment and Plan (1) CHF exacerbation: Status: Acute (2) Viral syndrome: Status: Acute (3) Influenza A: Status: Acute Plan This is a 62 yo F who presents to the ED in less than 24 hours after initially presenting for shortness of breath. She was diagnosed with influenza and not is exhibiting signs and symptoms of acute CHF exacerbation. She will be admitted for further treatment. 1. Acute CHF (unspecified) exacerbation suspected systolic CHF, but pt endorses last echo > 1 year, repeat echo pending Continue 40mg IV BID given persistent orthopnea I/O; daily weights if not improving, consider cardiology consult low salt diet hold coreg today, restart once CHF improved continue entresto/aldactone 2. Influenza? A infection - continue tamiflu (renally dosed -- ClCr less than 60, if improves, change to regular dose) - symptomatic management 3. HTN continue baseline meds; hold coreg 4. HLD statin 5. Obesity diet/exercise encouraged Full Code DVT pptx, Marysenox Endorses daughter as HCP Pt requires ongoing inpt stay for management of acute CHF exacerbation requiring IV diuresis and close monitoring of intake and output, renal function, and electrolyte levels. Quality Stroke Does the patient have a stroke diagnosis?: No VTE Prior VTE?: No VTE Risk Level:: Medical - moderate - high VTE Device Contraindication: Treatment Not Indicated VTE Drug Contraindication: N/A - Med Ordered
[2022-05-26 15:34] VITALS: BP 121/68; PULSE 94; RESP 15; TEMP 36.6; O2SAT 94
[2022-05-26 19:47] VITALS: BP 108/63; PULSE 92; RESP 17; TEMP 36.8; O2SAT 95
[2022-05-26] MEDS: traZODone HCL 50 MG TABLET PO (20:04)
[2022-05-26 23:30] VITALS: BP 114/76; PULSE 92; RESP 16; TEMP 36.2; O2SAT 96
[2022-05-27 04:00] VITALS: BP 100/57; PULSE 98; RESP 15; TEMP 36.2; O2SAT 93
[2022-05-27 05:48] VITALS: BMI 32.1
[2022-05-27 08:00] VITALS: BP 107/59; PULSE 91; RESP 16; TEMP 35.9; O2SAT 96
[2022-05-27] MEDS: Oseltamivir Phosphate 30 MG CAPSULE PO (08:38)
[2022-05-27] MEDS: Spironolactone 25 MG TABLET PO (08:38)
[2022-05-27] MEDS: Atorvastatin Calcium 80 MG TABLET PO (08:38)
[2022-05-27] MEDS: Sacubitril/Valsartan 24/26 1 TAB TABLET PO (08:38)
[2022-05-27] MEDS: 0.9 % Sodium Chloride Flush 3 ML SYRINGE IVFLUSH (08:38)
--- NOTE | 2022-05-27 10:31 | PM.CNCAR ---
History of Present Illness History of Present Illness Date of Service: 05/27/22 Requesting physician: Kati Newman Consult reason: congestive heart failure Chief complaint: sob, FLU+ Narrative: I was consulted to see Ines in cardiology consultation today for advanced cardiomyopathy and elevated BNP. She presented 2 days ago to the hospital with progressive symptoms of viral syndrome with fever and chills as well as malaise and muscle aches were also was complain of orthopnea and weight gain as well as leg edema. About 2 weeks ago she was started on her diuretics again. She was off Lasix in the past because of resolved congestive symptoms. She is on neurohormonal modulation with spironolactone, carvedilol unknown dose as well as Entresto. She sees [facility] heart failure team for her management of cardiomyopathy and heart failure which was diagnosed in 2017. Echo done here showed severely dilated left ventricle which compared to prior echo here shows significantly enlarged left ventricle with persistently severely depressed LV ejection fraction about 15% with secondary severe mitral regurgitation. Patient is feeling better with her shortness of breath and has been diuresed since she has been here. She is currently on Entresto and spironolactone. Her Coreg was withheld for unclear reason. She also feeling better from home viral syndrome perspective. Her BNP on admission was and 2000 range. Chest x-ray finding consistent with heart failure. At baseline prior to her decompensation she says she is very limited in activity level, seems NYHA class 3 symptoms Review of Systems Constitutional: Constitutional: Reports body ache(s), Reports chills, Reports fatigue, Reports fever(s) and Reports malaise Eyes: Eyes: Reports no additional eye complaints Cardiovascular: Cardiovascular: Denies Abdominal Distension, Denies chest pain, Reports leg edema, Denies lightheadedness, Denies Loss of Consciousness, Denies palpitations, Reports dyspnea on exertion and Reports orthopnea Respiratory: Respiratory: Reports no additional respiratory complaints and Reports dyspnea on exertion Gastrointestinal: Gastrointestinal: Reports no additional gastrointestinal complaints Genitourinary: Genitourinary: Reports no additional female genitourinary complaints Musculoskeletal: Musculoskeletal: Reports no additional musculoskeletal complaints Integumentary/Breasts: Skin/Breast: Reports system reviewed and no additional complaints, except as docu Neurologic: Reports system reviewed and no additional complaints, except as documented Psychiatric: Psychiatric: Reports no additional psychiatric complaints Endocrine: Endocrine: Reports no additional endocrine complaints, Reports fatigue and Denies palpitations Hematologic/Lymphatic: Hematologic/Lymphatic: Reports no additional hematologic/lymphatic complaints Allergic/Immunologic: Allergic/Immunologic: Reports no additional allergic/immunologic complaints [facility] Past Medical History Medical History CHF (congestive heart failure) Hyperlipidemia Hypertension Surgical History Surgical History No pertinent past surgical history Social History Social History Household Members: None Housing: Apartment Do you presently have visiting nurse or other home services: Yes Alcohol intake: never Patient Tobacco Use Status: Former Tobacco user Quit Date: service: No Current occupational status: [employer] Allergies Allergy/AdvReac Type Severity Reaction Status Date / Time No Known Allergies Allergy Unverified 02/13/20 15:50 [No Known Allergies*] Active Medications: Current Medications Acetaminophen (Acetaminophen 325 Mg Tablet) 650 mg PO Q6H PRN PRN Reason: Pain, Mild (Pain Scale 1-3) Last Admin: 05/25/22 12:08 Dose: 650 mg Atorvastatin Calcium (Atorvastatin Calcium 80 Mg Tablet) 80 mg PO DAILY [facility] Last Admin: 05/27/22 08:38 Dose: 80 mg Enoxaparin Sodium (Enoxaparin Sodium 40 Mg/0.4 Ml Syringe) 40 mg SUBCUT Q24H [facility] Last Admin: 05/26/22 11:30 Dose: 40 mg Furosemide (Furosemide 40 Mg/4 Ml Vial) 40 mg IVPUSH BID@0900,1800 [facility]; Protocol Last Admin: 05/26/22 17:22 Dose: 40 mg Guaifenesin (Guaifenesin 200 Mg/10 Ml 10 Ml Liquid) 10 ml PO Q4H PRN PRN Reason: Cough Last Admin: 05/26/22 17:23 Dose: 10 ml Ondansetron HCl (Ondansetron Hcl 4 Mg/2 Ml Vial) 4 mg IVPUSH Q8H PRN PRN Reason: Nausea and Vomiting Oseltamivir Phosphate (Oseltamivir Phosphate 30 Mg Capsule) 30 mg PO Q12H [facility] Stop: 05/29/22 20:01 Last Admin: 05/27/22 08:38 Dose: 30 mg Pharmacy Consult (Consult Rx Perform Med Rec) 1 each MISCELLANE ONCE PRN PRN Reason: Consult order Sacubitril/Valsartan (Sacubitril/Valsartan 24/ 1 Tab Tablet) 1 tab PO BID [facility]; Protocol Last Admin: 05/27/22 08:38 Dose: 1 tab Sodium Chloride (0.9 % Sodium Chloride Flush 3 Ml Syringe) 3 ml IVFLUSH QSHIFT [facility] Last Admin: 05/27/22 08:38 Dose: 3 ml Spironolactone (Spironolactone 25 Mg Tablet) 25 mg PO DAILY [facility]; Protocol Last Admin: 05/27/22 08:38 Dose: 25 mg Trazodone HCl (Trazodone Hcl 50 Mg Tablet) 50 mg PO BEDTIME [facility] Last Admin: 05/26/22 20:04 Dose: 50 mg Home Medications Medication Instructions Recorded Confirmed Last Taken Type acetaminophen 325 mg tablet 650 mg PO Q6H PRN Pain 05/25/22 05/25/22 Unknown History (Tylenol) carvedilol 6.25 mg tablet 1 tab PO BID 05/25/22 05/25/22 05/24/22 History furosemide 20 mg tablet 1 tab PO DAILY PRN Weight Gain or 05/25/22 05/25/22 05/24/22 History shortness of breath rosuvastatin 40 mg tablet 1 tab PO DAILY 05/25/22 05/25/22 Unknown History sacubitril 24 mg-valsartan 26 mg 1 tab PO BID 05/25/22 05/25/22 05/24/22 History tablet (Entresto) spironolactone 25 mg tablet 1 tab PO DAILY 05/25/22 05/25/22 05/24/22 History Physical Exam Vital Signs: Vital Signs: Last Vital Signs Temp 96.7 F L 05/27/22 08:00 Pulse 91 05/27/22 08:00 Resp 16 05/27/22 08:00 BP 107/59 L 05/27/22 08:00 Pulse Ox 96 05/27/22 08:00 O2 Del Method 05/27/22 08:00 O2 Flow Rate 2 05/25/22 17:39 BMI result Body Mass Index 32.1 Const: General: cooperative, comfortable, no acute distress, alert, awake and anxious Nutritional Appearance: overweight Orientation/consciousness: patient oriented x3 Limitations: no limitations HEENT: Head: Yes normocephalic and Yes atraumatic Neck: Neck: Yes trachea midline, Yes supple and Yes no JVD Chest: Chest palpation & inspection: normal inspection of the chest Resp: Effort & Inspection: normal respiratory effort Auscultation: clear to auscultation bilaterally Cardio: Jugular venous distension: no JVD Palpation: abnormal PMI displaced PMI Rate: regular rate Rhythm: regular rhythm Heart sounds: S1 normal heart sound present, S2 normal heart sound present, no click, no gallops, no murmurs and no rubs GI: Auscultation: normal bowel sounds Skin: General skin exam: no rashes or lesions noted Neuro: General: patient oriented x3 and no focal motor deficits Extrem: General: Yes no clubbing, cyanosis or edema Psych: Appearance: grossly normal Objective Labs and Meds Result diagrams: 05/25/22 07:31 05/26/22 05:51 ECG Interpretation: EKG shows sinus tachycardia with moderate voltage criteria for LVH with nonspecific ST T wave changes Assessment and Plan (1) CHF exacerbation: Status: Acute Patient admitted with decompensated congestive heart failure related to viral syndrome in the setting of known prior severe LV systolic dysfunction with LVEF of 15%. Compared to few years ago her LV size has increased significantly and has secondary significant mitral regurgitation. At home currently she is on spironolactone, carvedilol as well as Entresto. Clinically today she appears to be euvolemic. Can switch her to p.o. Lasix 40 mg daily. Continue supportive care for viral syndrome. Continue spironolactone Entresto. Re-initiate her carvedilol therapy. Also add Jardiance 10 mg to regimen for heart failure. Management of heart failure was discussed with her in details. Daily weight monitoring avoidance of salt loading was discussed. Given her advanced heart failure symptoms with minimal exertion at home prior to her decompensation would require further evaluation for other treatment options for heart failure. She does have significant mitral regurgitation due to left ventricular pathology and consideration for mitral valve repair with percutaneous technique can be entertained. Other options including advanced therapies such as LVAD and/or heart transplant should be considered. I also discussed with her about high risk for arrhythmic sudden cardiac that. Strongly recommend her to undergo defibrillator placement. She wants to think about it. From cardiac perspective patient can be discharged home and follow with her own agricultural consultant. Thank you for allowing me to partake in her care Time Spent With Patient Time: Total time managing care of this patient today ____ minutes. Procedures Date of Service Date of Service: 05/27/22
[2022-05-27] MEDS: Furosemide 40 MG TABLET PO (11:45)
[2022-05-27] MEDS: Empagliflozin 10 MG TABLET PO (11:45)
[2022-05-27] MEDS: carvediloL 6.25 MG TABLET PO (11:45)
[2022-05-27] MEDS: Enoxaparin Sodium 40 MG/0.4 ML SYRINGE SUBCUT (11:46)
[2022-05-27 11:57] VITALS: BP 100/65; PULSE 93; RESP 16; TEMP 36.2; O2SAT 92
--- NOTE | 2022-05-27 11:59 | MHC.CM.PN ---
pt to be dcd today home with [facility]
--- NOTE | 2022-05-27 12:07 | PM.DS ---
DS: Providers Provider Date of Service: 05/27/22 Date of admission: 05/25/22 11:18 Primary care physician: Lorna Nice MD Consults: 05/27/22 08:29 Consult to Cardiology Routine Consulting Provider: Anthony Worthington Reason for consultation: CHF exacerbation with low EF DS: Diagnosis Discharge Diagnosis (1) CHF exacerbation: Status: Acute (2) Influenza A: Status: Acute DS: Summary Hospital Course Hospital Course: Admission note HPI This is a 62 yo F with a PMH of CHF, HTN, HLD who presents to the ED for the second time in 2 days (pt presented to the ED day [employer] and was diagnosed with influenza and discharged home with tamiflu, albuterol and prednisone) complaints of shortness of breath and generalized malaise. The patient states that 2 days prior to admission, she began feeling unwell. It started with a headache, progressed to body aches and eventually to shortness of breath. She endorsed fevers (objectively - measured 102 at home) and chills. Reports non-productive cough. She reports no sick contacnts. Upon specific questioning about the shortness of breath, she endorses that she has actually been having trouble breathing (particularly in the supine position) even prior to the recent illness. She states that she has been recently re-started on lasix (was on it after her diagnosis of CHF in 2017, but was taken off at some point and was restarted about 2 weeks ago). She reports weight gain of at least 5 lbs - unclear duration. She denies chest pain. She does report PND and non-productive cough. She denies dietary indiscretion (even during the holiday season) and reports she generally eats a low salt diet. ED work up reveals a BNP > 2000 and a CXR consistent with CHF. She has been given tamiflu and total IV lasix 60. She continues to feel short of breath with increased RR and tachycardia. She is on supplemental O2 at 2L. She will be admitted for acute CHF exacerbation. Hospital course The patient was admitted to the hospital for evaluation of difficulty breathing. Found to be in heart failure exacerbation with elevated BNP and CXR showing increased fluid congestion with associated positive test for influenza A. Treated with Tamiflu, IV Lasix and oxygen supplement which was weaned down over the course of hospital stay to room as she became able to ambulate with same limitations as baseline. Repeated echo showed EF of 15% as her known baseline with moderate left ventricular dilatation. Evaluated by whipped topping supervisor who recommended increasing Lasix to 40 mg daily and starting Jardiance with a plan to follow-up with her primary whipped topping supervisor as outpatient to discuss possible defibrillator, mitral valve surgery, LVAD and possible heart transplant options. Finish total of 5 days of Tamiflu Increase Lasix to 40 mg daily Start Jardiance 10 mg daily To follow-up with your whipped topping supervisor as outpatient to discuss defibrillator, LVAD and heart transplant options Time Spent with Patient Time attestation: Total time managing care of this patient today ____ minutes. Discharge coordination time: Greater than 30 minutes Quality: Safe Use of Opioids Does Pt have an Active Cancer Diagnosis on the Problem List?: No Quality: Stroke Does the patient have a stroke diagnosis?: No Physical Exam Vital Signs: Vital Signs: Last Vital Signs Temp 97.1 F 05/27/22 11:57 Pulse 93 05/27/22 11:57 Resp 16 05/27/22 11:57 BP 100/65 05/27/22 11:57 Pulse Ox 92 05/27/22 11:57 O2 Del Method 05/27/22 11:57 O2 Flow Rate 2 05/25/22 17:39 BMI result Body Mass Index 32.1 Const: Other: Constitutional : Awake, interactive, not in distress Neck : Normal inspection, Supple Cardiovascular : RRR, no JVP, systolic murmur, no lower extremity edema Respiratory : good bilateral air entry, no crackles, wheezes or rhonchi Gastrointestinal: soft, lax, Normal bowel sounds, Non tender Skin : Warm, Dry Neurological : Alert & oriented x3, No focal deficit DS: Data Imaging Chest x-ray: Radiologist's impression: ITS Impressions Chest X-Ray 05/25/22 08:02 IMPRESSION: Question mild CHF. Differential would include airways disease. Clinical correlation recommended. Discharge Plan Discharge Anticipated Discharge Date/Time: 05/27/22 11:49 Patient Disposition: Home Health Service Discharge Diagnosis: Acute heart failure exacerbation Influenza a infection Referrals: [facility] [Other] - 1 Week Lorna Nice MD [Primary Care Provider] - 1 Week Discharge Medications: New Jardiance 10 mg Tablet 10 mg PO DAILY 30 Days Qty: 30 0RF Continued oseltamivir [Tamiflu] 75 mg capsule 75 mg PO BID 5 Days Qty: 10 0RF albuterol sulfate 90 mcg/actuation HFA aerosol inhaler 2 puff inhalation Q6H PRN (Reason: shortness of breath or wheezing) Qty: 8.5 0RF acetaminophen [Tylenol] 325 mg Tablet 650 mg PO Q6H PRN (Reason: Pain) carvedilol 6.25 mg tablet 1 tab PO BID spironolactone 25 mg tablet 1 tab PO DAILY furosemide 20 mg tablet 1 tab PO DAILY PRN (Reason: Weight Gain or shortness of breath) Entresto 24-26 mg tablet 1 tab PO BID rosuvastatin 40 mg tablet 1 tab PO DAILY Discontinued prednisone 20 mg tablet 40 mg PO DAILY 5 Days Qty: 10 0RF Discharge Orders: Discharge Order (Routine); Ordered 05/27/22 Ordered By: Kati Newman Diet: Low salt diet Activity on Discharge: As tolerated Stand Alone Forms: Patient Portal Discharge page Care Plan Goals: Read below Health Concerns: Read below Plan of Treatment: Read below Assessment: You were admitted to the hospital for evaluation of difficulty breathing. Found to be in heart failure exacerbation associated with influenza a infection. Treated with IV Lasix and Tamiflu with good response over the course of hospital stay as you were weaned off oxygen. Repeated echo showed ejection fraction of 15%. You were evaluated by whipped topping supervisor who suggested increasing Lasix at home and starting Jardiance 10 mg daily. Consider mitral valve repair, LVAD or heart transplant and the need to place a defibrillator to be discussed with your primary whipped topping supervisor. Finish total of 5 days of Tamiflu Increase Lasix to 40 mg daily Start Jardiance 10 mg daily To follow-up with your whipped topping supervisor as outpatient to discuss defibrillator, LVAD and heart transplant options
--- NOTE | 2022-05-27 12:28 | W.MHC.F2F ---
Service Date Service Date: 05/27/22 Encounter Date of encounter: 05/27/22 Reasons for Services Signs and symptoms assessed: Heart failure exacerbation Reason for senior living: medication management and teach disease management Homebound: Leaving the home is medically contraindicated at this time without the asist of a device and/or another person due th the listed conditions above and below. Reason homebound: shortness of breath with minimal effort Certification: Based on the above findings, I certify that this patient is confined to the home and needs intermittent senior living care, physical therapy and/or speech therapy, or continues to need occupational therapy. The patient is under my care, and I have initiated the establishment of the plan of care. The patient will be followed by a physician who will periodically review the plan of care. Time Spent With Patient Time: Total time managing care of this patient today ____ minutes.
== END 2022-05-27 13:12 | disposition home health service (06) | DRG 194 ==
LOC: HO.ED 08:44 → HO.EDOVER 11:20 → HO.IMC 19:19
PROVIDERS: Admitting Provider Family Medicine; Emergency Provider Student in an Organized Health Care Education/Training Program; PCP Internal Medicine; Visit Provider Student in an Organized Health Care Education/Training Program
DX: I11.0 Hypertensive heart disease with heart failure (principal); E66.9 Obesity, unspecified; E78.5 Hyperlipidemia, unspecified; I50.23 Acute on chronic systolic (congestive) heart failure; I34.0 Nonrheumatic mitral (valve) insufficiency; J10.1 Influenza due to other identified influenza virus with other respiratory manifestations; Z87.891 Personal history of nicotine dependence; Z79.899 Other long term (current) drug therapy
CPT/HCPCS: 36415; 71045; 80048; 80053; 83880; 84484; 85025; 85610; 87502; 87635; 93005; 93306; 99285; J1650; J1940

== ENCOUNTER 2023-12-20 23:07 | Emergency (ER) | payer MEDICARE, SELFPAY ==
[2023-12-20 23:11] VITALS: BP 138/73; BP 141/82; PULSE 92; PULSE 93; RESP 18; TEMP 36.6; O2SAT 98; O2SAT 99; BMI 30.1
[2023-12-20 23:37] LABS: Basophils Percent Auto 0.5 % (0-2); Eosinophils Absolute Auto 0.2 X10*3/uL (0.0-0.4); Eosinophils Percent Auto 2.3 % (0-4); Hemoglobin 11.9 g/dl (12.0-16.0); Imm Gran Abs Auto 0.02 X10*3/uL (0.00-0.03); Imm Gran Pct Auto 0.3 % (0.0-0.4); Lymphocytes Absolute Auto 2.4 X10*3/uL (1.2-4.9); MANUAL DIFF FLAG NO; Mean Corpuscular HGB Conc 32.2 g/dl (31.0-35.0); Mean Corpuscular Hemoglobin 27.8 pg (27.0-33.0); Mean Corpuscular Volume 86.4 fL (80.0-98.0); Mean Platelet Volume 9.4 fL (9.4-12.3); Monocytes Absolute Auto 0.5 X10*3/uL (0.1-1.2); Monocytes Percent Auto 6.5 % (2-11); Neutrophils Absolute Auto 4.8 x10*3/uL (2.0-8.3); Neutrophils Percent Auto 60.4 % (45-73); Platelet Count 383 X10*3/uL (160-400); Red Blood Count 4.28 X10*6/uL (4.20-5.50); Red Cell Distribution Width 13.2 % (11.0-16.0); White Blood Count 7.9 X10*3/uL (4.8-10.8)
[2023-12-20 23:50] LABS: Alanine Aminotransferase 7 U/L (0-31); Albumin Level 4.5 g/dL (3.5-5.0); Alkaline Phosphatase 85 U/L (39-117); Anion Gap 18 (12-20); Aspartate Amino Transferase 13 U/L (5-31); Bilirubin Total 0.4 mg/dL (0.0-1.0); Blood Urea Nitrogen 17 mg/dL (9-16); Calcium 8.8 mg/dL (8.4-10.2); Carbon Dioxide 23 mmol/L (22-29); Chloride 108 mmol/L (96-108); Creatinine Clr Calc Pharmacy 52.6; Estimated Glomerular Filt Rate 51; Glucose Random 115 mg/dL (60-115); Lipase 13 U/L (8-78); Potassium 3.5 mmol/L (3.3-5.1); Sodium 145 mmol/L (135-145); Total Protein 8.3 g/dL (6.5-8.0)
[2023-12-21 01:31] VITALS: BP 115/63; PULSE 82; RESP 16; TEMP 36.7; O2SAT 97
--- NOTE | 2023-12-21 01:32 | MHC.EDTECH ---
This pct just assumed care of Patient ,vitals taken and urine sample collected and sent to lab .
[2023-12-21 01:38] LABS: Appearance Urine Cloudy; Color Urine Yellow; Glucose Urine UA Negative (Negative); Leukocyte Esterase Urine Moderate (2+) (Negative); Nitrite Urine Negative (Negative); PH 5.5 (5.0-9.0); Specific Gravity - Urine 1.025 (1.005-1.025); UMIC TRIGGER UACC YES; Urine Blood Moderate (2+) (Negative); Urine Ketones Negative (Negative); Urine Protein 30 (1+) mg/dL (Neg-Trace)
[2023-12-21 02:01] LABS: Bacteria Urine 2+ (None Seen); Hyaline Casts Urine 0-2 /LPF (0-2); UACC Culture Trigger YES; WBC Urine 21-50 /HPF (0-5)
--- NOTE | 2023-12-21 02:34 | ED_ITS ---
HPI - Nausea/Vomiting/Diarrhea General Chief complaint: Nausea/Vomiting/Diarrhea Stated complaint: N/V/D X30 MINS Time Seen by Provider: 12/21/23 02:34 Source: patient Mode of arrival: ambulatory Limitations: no limitations History of Present Illness ED Provider: magda VÁSQUEZ Narrative: Patient with chronic diarrhea for more than 6 months noticed diffuse abdominal pain with nausea started few hours prior to arrival no vomiting no fever no chills no urinary complaints diarrhea she has a about 6 to 7 times a day whenever she eats something she has watery diarrhea patient has seen a PCP plan to see deputy administrator Related Data Home Medications ?Medication ?Instructions ?Recorded ?Confirmed acetaminophen 325 mg tablet 650 mg PO Q6H PRN Pain 05/25/22 05/25/22 (Tylenol) carvedilol 6.25 mg tablet 1 tab PO BID 05/25/22 05/25/22 rosuvastatin 40 mg tablet 1 tab PO DAILY 05/25/22 05/25/22 sacubitril 24 mg-valsartan 26 mg 1 tab PO BID 05/25/22 05/25/22 tablet (Entresto) spironolactone 25 mg tablet 1 tab PO DAILY 05/25/22 05/25/22 Previous Rx's ?Medication ?Instructions ?Recorded albuterol sulfate 90 mcg/actuation 2 puff inhalation Q6H PRN 05/24/22 aerosol inhaler shortness of breath or wheezing #8.5 grams oseltamivir 75 mg capsule (Tamiflu) 75 mg PO BID 5 days #10 caps 05/24/22 empagliflozin 10 mg tablet 10 mg PO DAILY 30 days #30 tabs 05/27/22 (Jardiance) furosemide 40 mg tablet 40 mg PO DAILY 30 days #30 tabs 05/27/22 cefuroxime axetil 250 mg tablet 250 mg PO BID 7 days #14 tabs 12/21/23 ondansetron 4 mg disintegrating 4 mg PO Q6-8H PRN nausea and 12/21/23 tablet vomiting #7 tabs Allergies Allergy/AdvReac Type Severity Reaction Status Date / Time No Known Allergies Allergy Verified 12/20/23 23:17 [No Known Allergies*] Review of Systems 2 Review of Systems: Yes all other systems are reviewed and are negative PMFSH Past Medical History Medical History Hyperlipidemia Hypertension CHF (congestive heart failure) Surgical History No pertinent past surgical history Social History Social History Household Members: None Housing: Apartment Do you presently have visiting nurse or other home services: Yes Alcohol intake: never Patient Tobacco Use Status: Former Tobacco user Use of substances other than those prescribed or required for medical reasons: No Advance Directives: No Advance Directives Information Provided: No Do you have a plan to hurt others: No Plan service: No Current occupational status: disabled Physical Exam 2 Vital Signs: Vital Signs: Last Vital Signs Temp 98.3 F 12/21/23 03:48 Pulse 76 12/21/23 03:48 Resp 17 12/21/23 03:48 BP 167/70 H 12/21/23 03:48 Pulse Ox 99 12/21/23 03:48 O2 Del Method Room Air 12/21/23 03:48 BMI result Body Mass Index 30.1 Appearance: Alert. Oriented X3. No acute distress. Eyes: No pallor or icterus ENT: Pharynx normal. Oral Mucosa moist Neck: Normal inspection. Neck supple. CVS: Normal heart rate and rhythm. Pulses normal. Respiratory: No respiratory distress. Equal air entry bilateral, Abdomen: Soft and mild diffuse tenderness no rebound tenderness or guarding Bowel sounds are present, no mass palpable, no CVA tenderness Skin: Skin warm and dry. Normal skin color. Normal skin turgor. Extremities: No lower extremity edema. No calf tenderness Neuro: Oriented X 3. No motor deficit. Medications Administered Discontinued Medications Generic Name Dose Route Start Last Admin Trade Name Freq PRN Reason Stop Dose Admin Cefuroxime Axetil 500 mg 12/21/23 02:34 12/21/23 02:45 Cefuroxime Axetil 500 Mg Tablet PO 12/21/23 02:35 500 mg ONCE ONE Administration Dicyclomine HCl 20 mg 12/21/23 02:34 12/21/23 02:46 Dicyclomine Hcl 10 Mg Capsule PO 12/21/23 02:35 20 mg ONCE ONE Administration Loperamide HCl 2 mg 12/21/23 02:46 12/21/23 03:05 Loperamide Hcl 2 Mg Capsule PO 12/21/23 02:47 2 mg ONCE ONE Administration Ondansetron HCl 4 mg 12/21/23 02:34 12/21/23 02:45 Ondansetron Odt 4 Mg Tab.Danyell SOUSAU 12/21/23 02:35 4 mg ONCE ONE Administration Medical Decision Making Medical Decision Making [facility] Narrative: Patient with chronic diarrhea came with diffuse abdominal pain with nausea workup showed urinary tract infection will prescribe Ceftin and symptomatic treatment labs are stable otherwise Differential Diagnosis Differential Diagnoses: The differential diagnosis associated with the presentation includes Malabsorption syndrome/gastroenteritis/gastritis/UTI Lab Data [facility] Lab Attestation statement: I reviewed the patient's lab results. 12/20/23 23:32 12/20/23 23:32 Labs: Lab Results 12/20/23 12/21/23 Range/Units 23:32 01:27 WBC 7.9 (4.8-10.8) X10*3/uL RBC 4.28 (4.20-5.50) X10*6/uL Hgb 11.9 L D (12.0-16.0) g/dl Hct 37.0 (37.0-47.0) % MCV 86.4 (80.0-98.0) fL MCH 27.8 (27.0-33.0) pg MCHC 32.2 (31.0-35.0) g/dl RDW 13.2 (11.0-16.0) % Plt Count 383 D (160-400) X10*3/uL MPV 9.4 (9.4-12.3) fL Immature Gran % (Auto) 0.3 (0.0-0.4) % Neut % (Auto) 60.4 (45-73) % Lymph % (Auto) 30.0 (20-40) % [place] % (Auto) 6.5 (2-11) % Eos % (Auto) 2.3 (0-4) % Baso % (Auto) 0.5 (0-2) % Lymph # (Auto) 2.4 (1.2-4.9) X10*3/uL [place] # (Auto) 0.5 (0.1-1.2) X10*3/uL Eos # (Auto) 0.2 (0.0-0.4) X10*3/uL Baso # (Auto) 0.0 (0.0-0.2) X10*3/uL Abs Immat Gran (auto) 0.02 (0.00-0.03) X10*3/uL Absolute Neuts (auto) 4.8 (2.0-8.3) x10*3/uL Absolute Nucleated RBC 0.000 (0.0-0.012) X10*3/uL Nucleated RBC % (auto) 0.0 (0.0-0.2) /100WBC Sodium 145 (135-145) mmol/L Potassium 3.5 (3.3-5.1) mmol/L Chloride 108 (96-108) mmol/L Carbon Dioxide 23 (22-29) mmol/L Anion Gap 18 (12-20) BUN 17 H (9-16) mg/dL Creatinine 1.09 (0.5-1.4) mg/dL Estim Creat Clear Calc 52.6 Estimated GFR 51 Random Glucose 115 (60-115) mg/dL Calcium 8.8 (8.4-10.2) mg/dL Total Bilirubin 0.4 (0.0-1.0) mg/dL AST 13 (5-31) U/L ALT 7 (0-31) U/L Alkaline Phosphatase 85 (39-117) U/L Total Protein 8.3 H (6.5-8.0) g/dL Albumin 4.5 (3.5-5.0) g/dL Lipase 13 (8-78) U/L Urine Color Yellow Urine Appearance Cloudy Urine pH 5.5 (5.0-9.0) Ur Specific [place] 1.025 (1.005-1.025) Urine Protein 30 (1+) H (Neg-Trace) mg/dL Urine Glucose (UA) Negative (Negative) mg/dL Urine Ketones Negative (Negative) mg/dL Urine Blood Moderate (2+) H (Negative) Urine Nitrite Negative (Negative) Ur Leukocyte Esterase Moderate (2+) H (Negative) Urine RBC 3-5 H (0-2) /HPF Urine WBC 21-50 H (0-5) /HPF Ur Squamous Epith Cells 6-10 (0-2) /HPF Urine Bacteria 2+ (None Seen) Hyaline Casts 0-2 (0-2) /LPF Discharge Plan Discharge Clinical Impression: Chronic diarrhea, UTI (urinary tract infection) Patient Disposition: Home, Self-Care Instructions: Urinary Tract Infection in Women (DC), Acute Diarrhea (ED) Additional Instructions: Take your antidiarrheal medication as prescribed by your PCP Avoid fried foods Take antibiotic for urinary tract infection Follow up with your PCP Drink plenty of fluids Prescriptions: New cefuroxime axetil 250 mg tablet 250 mg PO BID 7 Days Qty: 14 0RF ondansetron 4 mg tablet,disintegrating 4 mg PO Q6-8H PRN (Reason: nausea and vomiting) Qty: 7 0RF No Action oseltamivir [Tamiflu] 75 mg capsule 75 mg PO BID 5 Days Qty: 10 0RF albuterol sulfate 90 mcg/actuation HFA aerosol inhaler 2 puff inhalation Q6H PRN (Reason: shortness of breath or wheezing) Qty: 8.5 0RF acetaminophen [Tylenol] 325 mg Tablet 650 mg PO Q6H PRN (Reason: Pain) carvedilol 6.25 mg tablet 1 tab PO BID spironolactone 25 mg tablet 1 tab PO DAILY Entresto 24-26 mg tablet 1 tab PO BID rosuvastatin 40 mg tablet 1 tab PO DAILY Jardiance 10 mg Tablet 10 mg PO DAILY 30 Days Qty: 30 0RF furosemide 40 mg Tablet 40 mg PO DAILY 30 Days Qty: 30 0RF Protocol: Hold for SBP< HOLD for SBP < : 90 Interventions: ED Discharge Assessment Last Done: 12/21/23 03:48 Discharge Date/Time: 12/21/23 03:49 Print Language: Latvian
[2023-12-21] MEDS: cefuroxime axetiL 500 MG TABLET PO (02:45)
[2023-12-21] MEDS: Ondansetron ODT 4 MG TAB.RAPDIS TRANSLINGU (02:45)
[2023-12-21] MEDS: Dicyclomine HCl 10 MG CAPSULE 20 MG PO (02:46)
[2023-12-21] MEDS: Loperamide HCl 2 MG CAPSULE PO (03:05)
[2023-12-21 03:06] VITALS: BP 125/72; PULSE 76; RESP 17; TEMP 36.8; O2SAT 99
[2023-12-21 03:48] VITALS: BP 167/70; PULSE 76; RESP 17; TEMP 36.8; O2SAT 99
== END 2023-12-21 03:49 | disposition home or self-care (01) ==
PROVIDERS: Emergency Provider Internal Medicine; PCP Internal Medicine
DX: N39.0 Urinary tract infection, site not specified (principal); R11.2 Nausea with vomiting, unspecified; R19.7 Diarrhea, unspecified; Z79.899 Other long term (current) drug therapy
CPT/HCPCS: 36415; 80053; 81001; 83690; 85025; 87086; 99283; 99284

== ENCOUNTER 2023-12-28 08:02 | Outpatient (AMB) | payer MEDICARE, SELFPAY ==
[2023-12-28 08:06] VITALS: BP 130/72; PULSE 84; TEMP 36.8; O2SAT 97; BMI 30.1
--- NOTE | 2023-12-28 08:06 | MHC.OFFWIV ---
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 Denies fevers, chills, nausea or vomiting. Denies hearing problems. She has been taking Acetaminophen with good relief. PFS Medical History Hyperlipidemia Hypertension CHF (congestive heart failure) Surgical History No pertinent past surgical history Social History Household Members: None Housing: Apartment Do you presently have visiting nurse or other home services: Yes Alcohol intake: never Patient Tobacco Use Status: Former Tobacco user service: No Current occupational status: disabled Review of Systems Const All systems reviewed & are unremarkable except as noted in HPI and below Physical Exam Vital Signs: BMI result Body Mass Index 30.1 Const General: comfortable and no acute distress Orientation/consciousness: patient oriented x3 HEENT Head: Yes normocephalic Ears: external ears normal and TM abnormal bulging, erythematous, with fluid behind the TM bilateral and retracted; not perforated General nose exam: Abnormal mucous membranes and turbinates present pale Face and sinus: Yes sinuses nontender Mouth: moist mucous membranes Throat: Yes posterior oropharynx normal Resp Effort & Inspection: normal respiratory effort Cardio Heart sounds: S1 normal heart sound present and S2 normal heart sound present Neuro General: patient oriented x3 Assessment & Plan Assessment & Plan (1) Otitis media: Code(s): H66.90 - Otitis media, unspecified, unspecified ear Qualifiers: Chronicity: acute Laterality: right Recurrence: non-recurrent Otitis media type: other nonsuppurative Qualified Code(s): H65.191 - Other acute nonsuppurative otitis media, right ear Plan: Acetaminophen for pain relief Ordered Abx x 7 days. RTC with any fevers, nausea or vomiting. Medications: New amoxicillin-pot clavulanate 875-125 mg 1 tab PO Q12H 7 days 14 tabs 0RF H65.191 - Other acute nonsuppurative otitis media, right ear cetirizine (Zyrtec) 10 mg PO DAILY PRN 90 tabs 0RF allergy symptoms H65.191 - Other acute nonsuppurative otitis media, right ear acetaminophen 1,000 mg (2 x 500 mg) PO Q6H PRN 30 caps 0RF pain H65.191 - Other acute nonsuppurative otitis media, right ear Discontinued oseltamivir (Tamiflu) Discontinued Reason: Patient Completed Course 75 mg PO BID 5 days 10 caps 0RF cefuroxime axetil Discontinued Reason: Patient Completed Course 250 mg PO BID 7 days 14 tabs 0RF Coding Level of Care Code Est Pt Level 3 (09062) Diagnoses Other non-recurrent acute nonsuppurative otitis media of right ear H65.191 Chronicity: acute Laterality: right Recurrence: non-recurrent Otitis media type: other nonsuppurative Time Spent (min) 15
== END 2023-12-28 09:02 | disposition home or self-care (01) ==
PROVIDERS: PCP Internal Medicine; Visit Provider Nurse Practitioner Family
DX: H65.191 Other acute nonsuppurative otitis media, right ear (principal)
CPT/HCPCS: 99213

== ENCOUNTER 2024-05-23 21:43 | Inpatient (IN) | payer MEDICARE, SELFPAY ==
--- NOTE | ~2024-05-23 | XR_ITS ---
EXAMINATION: XR CHEST CLINICAL INFORMATION: SOB COMPARISON: May 25, 2022 TECHNIQUE: 2 views of the chest were obtained. FINDINGS: The cardiomediastinal silhouette is stable. There is pulmonary vascular congestion and perihilar increased markings. There is no focal lung consolidation or pleural effusions. The bony structures and the soft tissues are unremarkable. XR/XR chest 2V IMPRESSION: Pulmonary vascular congestion and perihilar increased markings suggestive of mild CHF. Electronically signed by: Danny Burnett MD 05/23/2024 11:48 PM EST
[2024-05-23 21:46] VITALS: BP 127/85; PULSE 106; RESP 22; TEMP 36.4; O2SAT 100; BMI 30.5
[2024-05-23 22:10] LABS: MANUAL DIFF FLAG NO
[2024-05-23 22:16] LABS: Basophils Absolute Auto 0.1 X10*3/uL (0.0-0.2); Basophils Percent Auto 0.8 % (0-2); Eosinophils Absolute Auto 0.2 X10*3/uL (0.0-0.4); Eosinophils Percent Auto 2.6 % (0-4); Hematocrit 33.3 % (37.0-47.0); Hemoglobin 10.5 g/dl (12.0-16.0); Imm Gran Abs Auto 0.04 X10*3/uL (0.00-0.03); Imm Gran Pct Auto 0.5 % (0.0-0.4); Lymphocytes Absolute Auto 2.5 X10*3/uL (1.2-4.9); Lymphocytes Percent Auto 29.4 % (20-40); Mean Corpuscular HGB Conc 31.5 g/dl (31.0-35.0); Mean Corpuscular Hemoglobin 26.7 pg (27.0-33.0); Mean Corpuscular Volume 84.7 fL (80.0-98.0); Mean Platelet Volume 9.7 fL (9.4-12.3); Monocytes Absolute Auto 0.5 X10*3/uL (0.1-1.2); Monocytes Percent Auto 5.8 % (2-11); Neutrophils Absolute Auto 5.1 x10*3/uL (2.0-8.3); Neutrophils Percent Auto 60.9 % (45-73); Platelet Count 349 X10*3/uL (160-400); Red Blood Count 3.93 X10*6/uL (4.20-5.50); White Blood Count 8.4 X10*3/uL (4.8-10.8)
[2024-05-23 22:27] LABS: Alanine Aminotransferase 34 U/L (0-31); Albumin Level 3.9 g/dL (3.5-5.0); Alkaline Phosphatase 97 U/L (39-117); Anion Gap 9 (12-20); Aspartate Amino Transferase 40 U/L (5-31); Bilirubin Total 0.6 mg/dL (0.0-1.0); Blood Urea Nitrogen 20 mg/dL (9-16); Calcium 8.5 mg/dL (8.4-10.2); Carbon Dioxide 23 mmol/L (22-29); Chloride 114 mmol/L (96-108); Creatinine Clr Calc Pharmacy 48.9; Estimated Glomerular Filt Rate 49; Glucose Random 154 mg/dL (60-115); Potassium 4.1 mmol/L (3.3-5.1); Sodium 142 mmol/L (135-145); Total Protein 7.4 g/dL (6.5-8.0)
[2024-05-23 22:46] LABS: B Type Natriuretic Peptide 2747 pg/mL (<100)
[2024-05-23 22:47] LABS: Influenza A PCR NEGATIVE (Negative); Influenza B PCR NEGATIVE (Negative); Resp Syncy Virus RNA Qual PCR NEGATIVE (Negative); SARS COV2 PCR INHOUSE NEGATIVE (Negative)
[2024-05-24] VITALS (11 sets, daily range): BP systolic 112–165; BP diastolic 70–85; PULSE 89–105; RESP 14–27; TEMP 36–37; O2SAT 93–98; BMI 30.2
--- NOTE | 2024-05-24 01:42 | PC.NURSE ---
Assumed care of pt at 0135. PT noted to be short of breath and tripoding- rr up to 41 at times. states that perfume smell in waiting room caused SOB. IV line placed in LAC, pt placed on shelter monitor Sinus tachy 105 bpm. pt states she has a history of CHF and has been med compliant. Notified provider of pt's BNP
--- NOTE | 2024-05-24 02:00 | ED_ITS ---
HPI - General Adult General Chief complaint: Upper Respiratory Symptoms Stated complaint: sob Time Seen by Provider: 05/24/24 01:51 Source: patient Mode of arrival: ambulatory Limitations: no limitations History of Present Illness ED Provider: DR. Smith HPI narrative: A 64-year-old female with history of CHF, HTN, HLD presented to the ED for 3 days of dyspnea on exertion, orthopnea. Patient normally takes small dose of Lasix and has been urinating normally. No CP. Patient also has been coughing with no phlegm, no fever, no chills, no sick contacts, no recent travel. Related Data Home Medications ?Medication ?Instructions ?Recorded ?Confirmed acetaminophen 325 mg tablet 650 mg PO Q6H PRN Pain 05/25/22 05/25/22 (Tylenol) carvedilol 6.25 mg tablet 1 tab PO BID 05/25/22 05/25/22 rosuvastatin 40 mg tablet 1 tab PO DAILY 05/25/22 05/25/22 sacubitril 24 mg-valsartan 26 mg 1 tab PO BID 05/25/22 05/25/22 tablet (Entresto) spironolactone 25 mg tablet 1 tab PO DAILY 05/25/22 05/25/22 ezetimibe 10 mg tablet 10 mg PO DAILY 12/28/23 sertraline 50 mg tablet 50 mg PO DAILY 12/28/23 Previous Rx's ?Medication ?Instructions ?Recorded albuterol sulfate 90 mcg/actuation 2 puff inhalation Q6H PRN 05/24/22 aerosol inhaler shortness of breath or wheezing #8.5 grams empagliflozin 10 mg tablet 10 mg PO DAILY 30 days #30 tabs 05/27/22 (Jardiance) furosemide 40 mg tablet 40 mg PO DAILY 30 days #30 tabs 05/27/22 ondansetron 4 mg disintegrating 4 mg PO Q6-8H PRN nausea and 12/21/23 tablet vomiting #7 tabs acetaminophen 500 mg capsule 1,000 mg (2 x 500 mg) PO Q6H PRN 12/28/23 pain #30 caps amoxicillin 875 mg-potassium 1 tab PO Q12H 7 days #14 tabs 12/28/23 clavulanate 125 mg tablet cetirizine 10 mg tablet (Zyrtec) 10 mg PO DAILY PRN allergy 12/28/23 symptoms #90 tabs Allergies Allergy/AdvReac Type Severity Reaction Status Date / Time No Known Allergies Allergy Verified 05/23/24 21:46 [No Known Allergies*] Review of Systems 2 Review of Systems: All other systems are reviewed and are negative Constitutional: Reports as per HPI and Reports no additional constitutional complaints Eyes: Reports as per HPI and Reports no additional eye complaints Reports system reviewed and no additional complaints, except as documented Cardiovascular: Reports as per HPI and Reports no additional cardiovascular complaints Respiratory: Reports as per HPI and Reports no additional respiratory complaints Gastrointestinal: Reports as per HPI and Reports no additional gastrointestinal complaints Genitourinary: Reports no additional female genitourinary complaints Musculoskeletal: Reports no additional musculoskeletal complaints Skin/Breast: Reports system reviewed and no additional complaints, except as docu Psychiatric: Reports no additional psychiatric complaints Endocrine: Reports no additional endocrine complaints Hematologic/Lymphatic: Reports no additional hematologic/lymphatic complaints Allergic/Immunologic: Reports no additional allergic/immunologic complaints Reports system reviewed and no additional complaints, except as documented and Reports Abnormal speech present [facility] Past Medical History Medical History Hyperlipidemia Hypertension CHF (congestive heart failure) Surgical History No pertinent past surgical history Social History Social History Household Members: None Housing: Apartment Do you presently have visiting nurse or other home services: Yes Alcohol intake: never Patient Tobacco Use Status: Former Tobacco user Smoked in Last 30 Days: No Use of substances other than those prescribed or required for medical reasons: No Advance Directives: No Do you have a plan to hurt others: No Plan service: No Current occupational status: disabled Physical Exam ED Vital Signs: Vital Signs - 24 hr 05/23/24 21:46 05/24/24 01:32 05/24/24 01:36 Temperature 97.6 F 97.8 F Pulse Rate 106 H 105 H Pulse Rate [Monitor] 103 H Respiratory Rate 22 H 27 H 27 H Blood Pressure 127/85 140/81 H Pulse Oximetry 100 97 Oxygen Delivery Method Room Air Room Air 05/24/24 01:36 Temperature Pulse Rate Pulse Rate [Monitor] Respiratory Rate Blood Pressure Pulse Oximetry 97 Oxygen Delivery Method Room Air BMI result Body Mass Index 30.5 Vital signs have been reviewed and appear to be correct. Blood pressure elevated. Heart rate normal. Respiratory rate normal. Temperature normal. Oxygen saturation normal. Appearance: Alert. Oriented X3. No acute distress. Head: Normal external exam. Normocephalic. Atraumatic. No Cook signs noted. No raccoon eyes noted Eyes: PERRLA. EOMI. Conjunctiva and sclera normal. Eyelids normal. ENT: TM's Normal. Pharynx normal. Uvula midline. Moist mucous membranes. No trismus noted. No drooling noted. No muffled voice noted. Neck: Normal inspection. Neck supple. FROM. No adenopathy. Thyroid Normal. No meningeal signs. No neck mass noted. CVS: Normal heart rate and rhythm. Heart sound normal. No murmurs noted. Pulses normal throughout. Respiratory: No respiratory distress. Painless inspiration. Breath sounds normal. No wheezes/rales/rhonchi noted. Chest nontender. No accessory muscle usage noted or decreased air movement noted. Abdomen: Soft and nontender. Bowel sounds normal in all 4 quadrants. No distention noted. No organomegaly noted. No visible injury noted. Back: No CVA tenderness. Full range of motion noted. Skin: Skin warm and dry. Normal skin color. Normal skin turgor. No rashes/lesions/lacerations noted. Extremities: No lower extremity edema. Extremities exhibit normal range of motion. Extremities nontender. Neuro: Oriented X 3. Cranial nerve exam: II-XII are grossly intact No motor deficit. No sensory deficit. Reflexes normal. Course Reevaluation(s) Reevaluation #1: Patient feels better after was given Lasix/nitro. able to breathe more comfortably, Continue diuresis and will admit. Time: 03:00 Medical Decision Making Differential Diagnosis Differential Diagnoses: The differential diagnosis associated with the presentation includes (CHF exacerbation, pneumonia, pneumothorax, viral pneumonia, upper respiratory infection, electrolyte derangement, severe anemia.) Admission/Observation Consideration of admission/observation: Escalation of care including admission/observation considered Consult Healthcare Provider Management of the patient was discussed with: Hospitalist (Dr. Newman) Lab Data MDM Lab Attestation statement: I reviewed the patient's lab results. 05/23/24 21:59 05/23/24 21:59 Labs: Lab Results 05/23/24 Range/Units 21:59 WBC 8.4 (4.8-10.8) X10*3/uL RBC 3.93 L (4.20-5.50) X10*6/uL Hgb 10.5 L (12.0-16.0) g/dl Hct 33.3 L (37.0-47.0) % MCV 84.7 (80.0-98.0) fL MCH 26.7 L (27.0-33.0) pg MCHC 31.5 (31.0-35.0) g/dl RDW 15.0 (11.0-16.0) % Plt Count 349 (160-400) X10*3/uL MPV 9.7 (9.4-12.3) fL Immature Gran % (Auto) 0.5 H (0.0-0.4) % Neut % (Auto) 60.9 (45-73) % Lymph % (Auto) 29.4 (20-40) % [place] % (Auto) 5.8 (2-11) % Eos % (Auto) 2.6 (0-4) % Baso % (Auto) 0.8 (0-2) % Lymph # (Auto) 2.5 (1.2-4.9) X10*3/uL [place] # (Auto) 0.5 (0.1-1.2) X10*3/uL Eos # (Auto) 0.2 (0.0-0.4) X10*3/uL Baso # (Auto) 0.1 (0.0-0.2) X10*3/uL Abs Immat Gran (auto) 0.04 H (0.00-0.03) X10*3/uL Absolute Neuts (auto) 5.1 (2.0-8.3) x10*3/uL Absolute Nucleated RBC 0.000 (0.0-0.012) X10*3/uL Nucleated RBC % (auto) 0.0 (0.0-0.2) /100WBC Sodium 142 (135-145) mmol/L Potassium 4.1 (3.3-5.1) mmol/L Chloride 114 H (96-108) mmol/L Carbon Dioxide 23 (22-29) mmol/L Anion Gap 9 L (12-20) BUN 20 H (9-16) mg/dL Creatinine 1.12 (0.5-1.4) mg/dL Estim Creat Clear Calc 48.9 Estimated GFR 49 Random Glucose 154 H (60-115) mg/dL Calcium 8.5 (8.4-10.2) mg/dL Total Bilirubin 0.6 (0.0-1.0) mg/dL AST 40 H (5-31) U/L ALT 34 H (0-31) U/L Alkaline Phosphatase 97 (39-117) U/L B-Natriuretic Peptide 2747 H (<100) pg/mL Total Protein 7.4 (6.5-8.0) g/dL Albumin 3.9 (3.5-5.0) g/dL Influenza Type A (PCR) NEGATIVE (Negative) Influenza Type B (PCR) NEGATIVE (Negative) RSV RNA Qual (PCR) NEGATIVE (Negative) SARS-CoV-2 RNA (RT-PCR) NEGATIVE (Negative) Independent Interpretation I performed an independent interpretation of an: Plain X-Ray (Chest:Pulmonary vascular congestion and perihilar increased markings suggestive of mild CHF.) Radiology Impression Discussion of test interpretation with radiology: I have reviewed the radiologist's reading. Discharge Plan Discharge Clinical Impression: Acute exacerbation of CHF (congestive heart failure) Patient Disposition: Admitted As Inpatient Prescriptions: No Action albuterol sulfate 90 mcg/actuation HFA aerosol inhaler 2 puff inhalation Q6H PRN (Reason: shortness of breath or wheezing) Qty: 8.5 0RF acetaminophen [Tylenol] 325 mg Tablet 650 mg PO Q6H PRN (Reason: Pain) carvedilol 6.25 mg tablet 1 tab PO BID spironolactone 25 mg tablet 1 tab PO DAILY Entresto 24-26 mg tablet 1 tab PO BID rosuvastatin 40 mg tablet 1 tab PO DAILY Jardiance 10 mg Tablet 10 mg PO DAILY 30 Days Qty: 30 0RF furosemide 40 mg Tablet 40 mg PO DAILY 30 Days Qty: 30 0RF Protocol: Hold for SBP< HOLD for SBP < : 90 ondansetron 4 mg tablet,disintegrating 4 mg PO Q6-8H PRN (Reason: nausea and vomiting) Qty: 7 0RF ezetimibe 10 mg tablet 10 mg PO DAILY sertraline 50 mg tablet 50 mg PO DAILY amoxicillin-pot clavulanate 875-125 mg tablet 1 tab PO Q12H 7 Days Qty: 14 0RF cetirizine [Zyrtec] 10 mg tablet 10 mg PO DAILY PRN (Reason: allergy symptoms) Qty: 90 0RF acetaminophen 500 mg capsule 1,000 mg PO Q6H PRN (Reason: pain) Qty: 30 0RF Print Language: Niuean
[2024-05-24] MEDS: Furosemide 40 MG/4 ML VIAL IVPUSH ×2 (02:25→09:35)
[2024-05-24] MEDS: Aspirin 325 MG TABLET PO (02:28)
[2024-05-24] MEDS: Nitroglycerin 2 % Oint 1 GM Packet 0.5 INCH TRANSDERMA (02:28)
[2024-05-24] MEDS: Melatonin 3 MG TABLET 6 MG PO (03:05)
--- NOTE | 2024-05-24 03:58 | P.HPHOSP_ITS ---
History of Present Illness Date of Service: 05/24/24 Chief Complaint: SOB, orthopnea A 64 years old lady with PMH of systolic CHF, HTN, HLD who presents to the hospital with worsneing dyspnea and orthopnea over the last few days. The patient reports that she was asked to take Lasix as needed since long time ago and she has not been taking it for at least a week, only one time yesterday. over the last period she noticed worsening dyspnea with decrease exercise tolerance and reported orthopnea as she has been sleeping sitting. No chest pain, palpitations, nausea, vomiting, diarrhea or urinary symptoms. EF in 2021 was 10-15%. no recent Echo in our EMR. In ED she maintained her O2 on RA but CXR showed pulm edema and BNP was elevated at 2700. will be admitted for further work up and management. Review of Systems 2 Review of Systems: No fever, chills or weakness No chest pain, palpitation reports shortness of breath , dry coughing No abdominal pain, nausea or vomiting No urinary symptoms No swelling PMFSH Medical History Hyperlipidemia Hypertension CHF (congestive heart failure) Surgical History No pertinent past surgical history Social History Household Members: None Housing: Apartment Do you presently have visiting nurse or other home services: Yes Alcohol intake: never Patient Tobacco Use Status: Former Tobacco user Smoked in Last 30 Days: No Use of substances other than those prescribed or required for medical reasons: No Advance Directives: No Do you have a plan to hurt others: No Plan service: No Current occupational status: disabled Meds Allergies Allergy/AdvReac Type Severity Reaction Status Date / Time No Known Allergies Allergy Verified 05/23/24 21:46 [No Known Allergies*] Home Medications ?Medication ?Instructions ?Recorded ?Confirmed ?Last Taken ?Type acetaminophen 325 mg tablet 650 mg PO Q6H PRN Pain 05/25/22 05/25/22 Unknown History (Tylenol) carvedilol 6.25 mg tablet 1 tab PO BID 05/25/22 05/25/22 05/24/22 History rosuvastatin 40 mg tablet 1 tab PO DAILY 05/25/22 05/25/22 Unknown History sacubitril 24 mg-valsartan 26 mg 1 tab PO BID 05/25/22 05/25/22 05/24/22 History tablet (Entresto) spironolactone 25 mg tablet 1 tab PO DAILY 05/25/22 05/25/22 05/24/22 History ezetimibe 10 mg tablet 10 mg PO DAILY 12/28/23 Unknown History sertraline 50 mg tablet 50 mg PO DAILY 12/28/23 Unknown History Physical Exam 2 Vital Signs and Narrative: Vital Signs: Last Vital Signs Temp 97.8 F 05/24/24 01:32 Pulse 103 H 05/24/24 01:36 Resp 27 H 05/24/24 01:36 BP 133/85 05/24/24 02:25 Pulse Ox 97 05/24/24 01:36 O2 Del Method Room Air 05/24/24 01:36 BMI result Body Mass Index 30.5 Const: Other: Constitutional : Awake, interactive, not in distress Neck : Normal inspection, Supple Cardiovascular : RRR, elevated JVP, trace lower extremity edema Respiratory : fair bilateral air entry, fine basal crackles Gastrointestinal: soft, lax, Normal bowel sounds, Non tender Skin : Warm, Dry Neurological : Alert & oriented x3, No focal deficit Results Labs 05/23/24 21:59 05/23/24 21:59 Labs: Laboratory Results - last 24 hr 05/23/24 21:59 MCV 84.7 MCH 26.7 L MCHC 31.5 RDW 15.0 Plt Count 349 MPV 9.7 Immature Gran % (Auto) 0.5 H Neut % (Auto) 60.9 Lymph % (Auto) 29.4 [place] % (Auto) 5.8 Eos % (Auto) 2.6 Baso % (Auto) 0.8 Lymph # (Auto) 2.5 [place] # (Auto) 0.5 Eos # (Auto) 0.2 Baso # (Auto) 0.1 Abs Immat Gran (auto) 0.04 H Absolute Neuts (auto) 5.1 Absolute Nucleated RBC 0.000 Nucleated RBC % (auto) 0.0 Anion Gap 9 L Estim Creat Clear Calc 48.9 Estimated GFR 49 Random Glucose 154 H Calcium 8.5 Total Bilirubin 0.6 AST 40 H ALT 34 H Alkaline Phosphatase 97 B-Natriuretic Peptide 2747 H Total Protein 7.4 Albumin 3.9 Influenza Type A (PCR) NEGATIVE Influenza Type B (PCR) NEGATIVE RSV RNA Qual (PCR) NEGATIVE SARS-CoV-2 RNA (RT-PCR) NEGATIVE Imaging Radiologist's Impressions: Impressions Chest X-Ray 05/23/24 22:03 IMPRESSION: Pulmonary vascular congestion and perihilar increased markings suggestive of mild CHF. Electronically signed by: Danny Burnett MD 05/23/2024 11:48 PM [facility] Assessment and Plan (1) Acute exacerbation of CHF (congestive heart failure): Status: Acute Plan A 64 years old lady with PMH of systolic CHF, HTN, HLD who presents to the hospital with worsneing dyspnea and orthopnea over the last few days. Acute on chronic systolic CHF exacerbation Elevated BNP 2700 CXR showing edema Start IV lasix repeat Echo cardiology consult I\O Telemetry HTN Home medications HLD statin Med rec pending DVT PPx Lovenox The patient will likely need 2 overnight hospital stay for treatment of CHF exacerbation with IV lasix pending Echo and cardiology eval Quality Stroke Does the patient have a stroke diagnosis?: No VTE Prior VTE?: No VTE Risk Level:: Medical - moderate - high VTE Device Contraindication: Treatment Not Indicated VTE Drug Contraindication: N/A - Med Ordered
[2024-05-24 04:37] LABS: Alanine Aminotransferase 34 U/L (0-31); Albumin Level 4.1 g/dL (3.5-5.0); Alkaline Phosphatase 97 U/L (39-117); Anion Gap 13 (12-20); Aspartate Amino Transferase 32 U/L (5-31); Bilirubin Total 0.5 mg/dL (0.0-1.0); Blood Urea Nitrogen 19 mg/dL (9-16); Calcium 8.5 mg/dL (8.4-10.2); Carbon Dioxide 21 mmol/L (22-29); Chloride 110 mmol/L (96-108); Creatinine Clr Calc Pharmacy 55.3; Estimated Glomerular Filt Rate 57; Glucose Random 114 mg/dL (60-115); Potassium 3.7 mmol/L (3.3-5.1); Sodium 140 mmol/L (135-145); Total Protein 7.7 g/dL (6.5-8.0)
[2024-05-24] MEDS: Enoxaparin Sodium 40 MG/0.4 ML SYRINGE SUBCUT (06:23)
--- NOTE | 2024-05-24 07:00 | CA_ITS ---
Transthoracic Echocardiogram Patient (Last, First, Middle): Ines Young, Gender: Female Date of : 1960 Age: 64 Procedure Date: 05/24/2024 Procedure Type: [place]ansthoracic [place] [facility] [place]: 157.48 cm Weight: 75.3 kg BSA: 1.77 m2 Heart Rate: 103 bpm BP: 165 / 78 mmHg Senior Water/Wastewater Engineer: TUCKER Lazo MD: Kati Newman MD Symptoms: Heart failure exacerbation Study Quality: Fair ECG Rhythm: Tachycardia Conclusions: - Severely increased left ventricular cavity size. There is normal left ventricular wall thickness. The left ventricular systolic function is severely decreased. The visually estimated ejection fraction is between 10-15%. - Elevated filling pressures. - Mildly increased right ventricular cavity size. There is mildly decreased right ventricular systolic function. - The left atrium is mildly dilated. The right atrium is likely dilated. - There is moderate to severe mitral valve regurgitation. - There is moderate tricuspid valve regurgitation. - Significantly elevated right atrial pressure. Severe pulmonary hypertension is present. Findings Left Ventricle Severely increased left ventricular cavity size. There is normal left ventricular wall thickness. The left ventricular systolic function is severely decreased. The visually estimated ejection fraction is between 10 15%. Abnormal diastolic function is noted. Spectral Doppler is indicative of a pseudonormal filling pattern. Elevated filling pressures. Right Ventricle Mildly increased right ventricular cavity size. There is mildly decreased right ventricular systolic function. Atria The left atrium is mildly dilated. The right atrium is likely dilated. Aortic Valve Normal aortic valve structure and function. There is no aortic valve stenosis. There is no aortic valve regurgitation. Mitral Valve There is moderate to severe mitral valve regurgitation. There is no mitral valve stenosis. Apical tethering of the mitral valve leaflets. Pulmonic Valve The pulmonic valve is normal. There is no pulmonic valve regurgitation. Tricuspid Valve Normal tricuspid valve structure. There is moderate tricuspid valve regurgitation. The right ventricular systolic pressure is 60 mmHg. Significantly elevated right atrial pressure. Severe pulmonary hypertension is present. Great Vessels All visible segments of the aorta are normal in size. The visualized portions of the pulmonary artery and branches are normal. Venous The inferior vena cava is dilated and collapses less than 50% with inspiration. Pericardium/Pleural There is no evidence of pericardial effusion. Prior Study Comparison No significant change compared to prior study dated: 05/25/2022. Measurements 2D Linear Measurements IVSd: 0.92 0.6-0.9/0.6-1.0 cm LVIDd: 7.66 3.9-5.3/4.2-5.9 cm LVIDd Index: 4.33 2.4-3.2/2.2-3.1 cm/m2 LVIDs: 6.40 2.0-3.6 cm LVPWd: 0.83 0.7-1.1 cm LA Diam: 4.00 2.7-3.8/3.0-4.0 cm LAIDs Index: 2.26 1.5-2.3 cm/m2 LV Mass: 397.48 67-162/88-224 g LV Mass Index: 224.56 43-95/49-115 g/m2 LVOT Diam: 2.10 3.0+(-)1.3 cm 2D Systolic Function EF 4C: 26.10 >55% EF 2C: 11.60 >55% EF BiP: 19.00 >55% Mitral Valve MV VTI: 0.33 MV Pk Prince: 1.79 MV Mn Prince: 1.08 MV Pk Grad: 13.00 MV Mn Grad: 6.00 MV Pk E: 1.49 MV PK A: 0.87 MV Decel Time: 158.00 E/A: 1.70 E'Lateral: 8.70 E'Medial: 6.31 E/E' Med: 23.60 E/E' Lat: 17.10 PHT: 46.00 MVA PHT: 4.78 MVA Continuity: 0.79 Decel [place]: 9.44 MR Vol - PW Dopp: 29.44 MR VTI: 1.28 MR ERO: 23.00 MR Alias Prince: 0.39 MR RAD: 0.70 Aortic Valve AoV Pk Prince: 1.10 AoV Mn Prince: 0.82 AoV VTI: 0.16 AoV Pk Grad: 5.00 Aov Mn Grad: 3.00 JARET Cont.VTI: 1.63 LVOT LVOT Pk Prince: 0.67 LVOT Mn Prince: 0.43 LVOT VTI: 0.07 LVOT Pk Grad: 2.00 LVOT Mn Grad: 1.00 LVOT Diam: 2.10 LVOT Area: 3.46 Diastolic Function MV Pk E: 1.49 MV Pk A: 0.87 E/A: 1.70 E'Medial: 6.31 E/E' Med: 23.60 E' Laterial: 8.70 E/E' Lat: 17.10 Right Ventricle TAPSE (mm): 21.90 TVS' Prince: 8.81 Tricuspid Valve TR Pk Prince: 3.18 TR Pk Grad: 40.00 RA Press: 15.00 RVSP: 60.00 Great Vessels Aorta Sinus of Valsalva: 2.80 2.0-3.5 cm Ao Asc: 3.00 2.1-3.4 cm Pulmonary Valve PV Pk Prince: 0.83 Peak PV Grad: 3.00 Updated in Other Vendor System with Status of Final Faisal Mccarty MD electronically signed on 05/25/2024 5:32:31 PM with status of Final
[2024-05-24] MEDS: 0.9 % Sodium Chloride Flush 3 ML SYRINGE IVFLUSH ×3 (07:48→20:19)
--- NOTE | 2024-05-24 09:12 | PHA.MEDREC ---
Pharmacy Consult ? Medication Reconciliation Pharmacy has completed the medication reconciliation. Spoke to patient and confirmed medication list. Patient confirmed she's taking furosemide 20 mg daily and she takes sertraline 50 mg PRN when she feels down . Last dose of medication was yesterday.
--- NOTE | 2024-05-24 10:44 | PM.EVENT ---
Event Note Date of Service: 05/24/24 Event Note: Day Team Note S Seen and examined feels the same; vague historian about her lasix dosing and CHF history vitals last documented rales at bases A/P 64 yo presenting with what appears to be CHF last echo in our system over 2 years ago continue iv lasix remainder per H&P Time Spent With Patient Time: Total time managing care of this patient today ____ minutes.
--- NOTE | 2024-05-24 11:10 | MHC.CM.PN ---
CM met with Patient at bedside and addressed IMM with her, providing Patient with the original and a copy has been placed on the chart. Patient lives alone in an apartment and she required no DME CLERICAL AIDE. Patient has a [employer] MANAGER 4 hours/week and home/resume said services is the goal; CM has initiated and will follow for dc planning. PCP is Dr. Lorna Nice. or Son/HCP/Steven to transport.
[2024-05-24] MEDS: Atorvastatin Calcium 80 MG TABLET PO (11:19)
[2024-05-24] MEDS: Ezetimibe 10 MG TABLET PO (11:19)
[2024-05-24] MEDS: Empagliflozin 10 MG TABLET PO (11:19)
[2024-05-24] MEDS: Spironolactone 25 MG TABLET PO (11:19)
--- NOTE | 2024-05-24 14:47 | PM.CNCAR ---
History of Present Illness History of Present Illness Date of Service: 05/24/24 Chief complaint: orthopnea, dyspnea Narrative: [age] year female with known history of cardiomyopathy with severe LV dysfunction presenting with shortness of breath. She had some dietary indiscretions over the holidays and was eating more salt than usual. She clinically appears to be in heart failure. She is having orthopnea and PND. Shortness of breath with activities. No chest discomfort. She follows with Dr. Sorto at [facility]. [facility] Past Medical History Medical History Hyperlipidemia Hypertension CHF (congestive heart failure) Surgical History Surgical History No pertinent past surgical history Social History Social History Household Members: None Housing: Apartment Do you presently have visiting nurse or other home services: No Alcohol intake: never Patient Tobacco Use Status: Former Tobacco user service: No Current occupational status: disabled Meds Allergies Allergy/AdvReac Type Severity Reaction Status Date / Time No Known Allergies Allergy Verified 05/23/24 21:46 [No Known Allergies*] Active Medications: Current Medications Acetaminophen (Acetaminophen 325 Mg Tablet) 650 mg PO Q6H PRN PRN Reason: Pain, Mild 1-3,fever,headache Atorvastatin Calcium (Atorvastatin Calcium 80 Mg Tablet) 80 mg PO DAILY [facility] Last Admin: 05/24/24 11:19 Dose: 80 mg Benzonatate (Benzonatate 100 Mg Capsule) 100 mg PO TID PRN PRN Reason: Cough Calcium Carbonate (Calcium Carbonate 750 Mg Tab.Chew) 750 mg PO Q4H PRN PRN Reason: Heartburn Carvedilol (Carvedilol 6.25 Mg Tablet) 6.25 mg PO BID [facility]; Protocol Ezetimibe (Ezetimibe 10 Mg Tablet) 10 mg PO DAILY [facility] Last Admin: 05/24/24 11:19 Dose: 10 mg Empagliflozin (Empagliflozin 10 Mg Tablet) 10 mg PO DAILY [facility] Last Admin: 05/24/24 11:19 Dose: 10 mg Enoxaparin Sodium (Enoxaparin Sodium 40 Mg/0.4 Ml Syringe) 40 mg SUBCUT Q24H [facility] Last Admin: 05/24/24 06:23 Dose: 40 mg Furosemide (Furosemide 40 Mg/4 Ml Vial) 40 mg IVPUSH DAILY [facility]; Protocol Last Admin: 05/24/24 09:35 Dose: 40 mg Influenza Virus Vaccine (Flu Vacc [id number](6mos Up)/Pf 0.5 Ml Syringe) 0.5 ml IM .ONCE ONE Stop: 05/27/24 09:01 Magnesium Hydroxide (Milk Of Magnesia 30 Ml Oral.Susp) 30 ml PO DAILY PRN PRN Reason: Constipation Melatonin (Melatonin 3 Mg Tablet) 6 mg PO BEDTIME PRN PRN Reason: Insomnia Ondansetron HCl (Ondansetron Hcl 4 Mg/2 Ml Vial) 4 mg IVPUSH Q8H PRN PRN Reason: Nausea and Vomiting Sacubitril/Valsartan (Sacubitril/Valsartan 1 Tab Tablet) 1 tab PO BID [facility]; Protocol Sertraline HCl (Sertraline Hcl 50 Mg Tablet) 50 mg PO DAILY PRN PRN Reason: mood Sodium Chloride (0.9 % Sodium Chloride Flush 3 Ml Syringe) 3 ml IVFLUSH QSHIFT [facility] Last Admin: 05/24/24 14:40 Dose: 3 ml Spironolactone (Spironolactone 25 Mg Tablet) 25 mg PO DAILY [facility]; Protocol Last Admin: 05/24/24 11:19 Dose: 25 mg Home Medications ?Medication ?Instructions ?Recorded ?Confirmed ?Last Taken ?Type carvedilol 6.25 mg tablet 1 tab PO BID 05/25/22 05/24/24 05/23/24 History rosuvastatin 40 mg tablet 1 tab PO DAILY 05/25/22 05/24/24 05/23/24 History sacubitril 24 mg-valsartan 26 mg 1 tab PO BID 05/25/22 05/24/24 05/23/24 History tablet (Entresto) spironolactone 25 mg tablet 1 tab PO DAILY 05/25/22 05/24/24 05/23/24 History ezetimibe 10 mg tablet 10 mg PO DAILY 12/28/23 05/24/24 05/23/24 History sertraline 50 mg tablet 50 mg PO DAILY PRN mood 12/28/23 05/24/24 Unknown History furosemide 20 mg tablet 20 mg PO DAILY 05/24/24 05/24/24 05/23/24 History Physical Exam Vital Signs: Vital Signs: Last Vital Signs Temp 97.4 F 05/24/24 12:00 Pulse 94 05/24/24 12:00 Resp 20 05/24/24 12:00 BP 128/83 05/24/24 12:00 Pulse Ox 97 05/24/24 12:00 O2 Del Method Room Air 05/24/24 12:00 BMI result Body Mass Index 30.2 GENERAL APPEARANCE: in no acute distress, pleasant. NECK: no carotid bruit, + jugular venous distention. SKIN: no suspicious lesions, warm and dry. HEART: no murmurs, regular rate and rhythm. LUNGS: Crackles at bases. ABDOMEN: soft, nontender. EXTREMITIES: no edema. PERIPHERAL PULSES: equal. NEUROLOGIC: No gross deficits, AAO X 3 Objective Labs and Meds 05/23/24 21:59 05/24/24 04:14 Lab results: Laboratory Results - last 24 hr 05/23/24 05/24/24 21:59 04:14 WBC 8.4 RBC 3.93 L Hgb 10.5 L Hct 33.3 L MCV 84.7 MCH 26.7 L MCHC 31.5 RDW 15.0 Plt Count 349 MPV 9.7 Immature Gran % (Auto) 0.5 H Neut % (Auto) 60.9 Lymph % (Auto) 29.4 [place] % (Auto) 5.8 Eos % (Auto) 2.6 Baso % (Auto) 0.8 Lymph # (Auto) 2.5 [place] # (Auto) 0.5 Eos # (Auto) 0.2 Baso # (Auto) 0.1 Abs Immat Gran (auto) 0.04 H Absolute Neuts (auto) 5.1 Absolute Nucleated RBC 0.000 Nucleated RBC % (auto) 0.0 Sodium 142 140 Potassium 4.1 3.7 Chloride 114 H 110 H Carbon Dioxide 23 21 L Anion Gap 9 L 13 BUN 20 H 19 H Creatinine 1.12 0.99 Estim Creat Clear Calc 48.9 55.3 Estimated GFR 49 57 Random Glucose 154 H 114 Calcium 8.5 8.5 Total Bilirubin 0.6 0.5 AST 40 H 32 H ALT 34 H 34 H Alkaline Phosphatase 97 97 B-Natriuretic Peptide 2747 H Total Protein 7.4 7.7 Albumin 3.9 4.1 Influenza Type A (PCR) NEGATIVE Influenza Type B (PCR) NEGATIVE RSV RNA Qual (PCR) NEGATIVE SARS-CoV-2 RNA (RT-PCR) NEGATIVE Imaging Radiologist's impression: Impressions Chest X-Ray 05/23/24 22:03 IMPRESSION: Pulmonary vascular congestion and perihilar increased markings suggestive of mild CHF. Electronically signed by: Danny Burnett MD 05/23/2024 11:48 PM [facility] Assessment and Plan (1) Acute exacerbation of CHF (congestive heart failure): Status: Acute Plan [age] year female with known history of cardiomyopathy presenting with shortness of breath orthopnea or PND. She was eating more salt during holidays and potentially develop volume overloaded due to that. Clinically she is volume overloaded and agree with IV diuretics. She follows with heart failure service at [facility]. Continue other medications as before. Hopefully can be transitioned to oral diuretic soon. Thank you for allowing me to participate in the care of your patient. Please feel free to contact me if you have any questions. Procedures Date of Service Date of Service: 05/24/24
[2024-05-24] MEDS: carvediloL 6.25 MG TABLET PO (20:18)
[2024-05-24] MEDS: Sacubitril/Valsartan 24/26 1 TAB TABLET PO (20:19)
[2024-05-24] MEDS: Benzonatate 100 MG CAPSULE PO (20:19)
[2024-05-25 04:00] VITALS: BP 117/69; PULSE 76; RESP 18; TEMP 36.9; O2SAT 94
[2024-05-25] MEDS: Enoxaparin Sodium 40 MG/0.4 ML SYRINGE SUBCUT (06:16)
[2024-05-25 07:00] VITALS: BP 109/65; PULSE 84; RESP 18; TEMP 36; O2SAT 96
[2024-05-25 07:26] LABS: B Type Natriuretic Peptide 1974 pg/mL (<100)
[2024-05-25] MEDS: Empagliflozin 10 MG TABLET PO (07:58)
[2024-05-25] MEDS: Sacubitril/Valsartan 24/26 1 TAB TABLET PO (07:58)
[2024-05-25] MEDS: Furosemide 40 MG/4 ML VIAL IVPUSH (07:58)
[2024-05-25] MEDS: Ezetimibe 10 MG TABLET PO (07:58)
[2024-05-25] MEDS: carvediloL 6.25 MG TABLET PO (07:58)
[2024-05-25] MEDS: 0.9 % Sodium Chloride Flush 3 ML SYRINGE IVFLUSH (07:59)
[2024-05-25] MEDS: Atorvastatin Calcium 80 MG TABLET PO (07:59)
[2024-05-25] MEDS: Spironolactone 25 MG TABLET PO (07:59)
[2024-05-25 10:54] VITALS: BP 100/57; PULSE 75; RESP 18; TEMP 36.1; O2SAT 98
--- NOTE | 2024-05-25 12:05 | P.DS_ITS ---
DS: Providers Provider Date of Service: 05/25/24 Date of admission: 05/24/24 03:55 Date of discharge: 05/25/24 Primary care physician: Lorna Nice MD Consults: 05/24/24 03:55 Consult to Cardiology Routine Consulting Provider: [facility] Reason for consultation: CHF w reduced EF DS: Diagnosis Discharge Diagnosis (1) Acute exacerbation of CHF (congestive heart failure): Status: Acute DS: Summary Hospital Course Hospital Course: Admission note HPI A 64 years old lady with PMH of systolic CHF, HTN, HLD who presents to the hospital with worsneing dyspnea and orthopnea over the last few days. The patient reports that she was asked to take Lasix as needed since long time ago and she has not been taking it for at least a week, only one time yesterday. over the last period she noticed worsening dyspnea with decrease exercise tolerance and reported orthopnea as she has been sleeping sitting. No chest pain, palpitations, nausea, vomiting, diarrhea or urinary symptoms. EF in 2021 was 10-15%. no recent Echo in our EMR. In ED she maintained her O2 on RA but CXR showed pulm edema and BNP was elevated at 2700. will be admitted for further work up and management. Hospital course The patient was admitted for treatment of Acute on chronic systolic CHF exacerbation with Elevated BNP 2700 and CXR showing edema. Started on IV lasix with good response as she was evaluated by cardiology team who recommended better salt\fluid management and to take her medications as prescribed. she was able to ambulate on RA with no reported dyspnea. she did not require O2 supplement. Repeated Echo still showing Dilated LV w EF of 15/20% and severe MR. To be followed by her primary cardiology team at [facility]. Discharge plan Monitor sodium and water intake Start Lasix daily Follow with cardiology as outpatient The patient made quicker than expected recovery and will not need 2 overnight hospital stay. Time Attestation Discharge Coordination Time (in mins): 39 Quality: Safe Use of Opioids Does Pt have an Active Cancer Diagnosis on the Problem List?: No Quality: Stroke Does the patient have a stroke diagnosis?: No Physical Exam Vital Signs: Vital Signs: Last Vital Signs Temp 96.9 F 05/25/24 10:54 Pulse 75 05/25/24 10:54 Resp 18 05/25/24 10:54 BP 100/57 L 05/25/24 10:54 Pulse Ox 98 05/25/24 10:54 O2 Del Method Room Air 05/25/24 10:54 BMI result Body Mass Index 30.2 Const: Other: Constitutional : Awake, interactive, not in distress Neck : Normal inspection, Supple Cardiovascular : RRR, elevated JVP, no lower extremity edema Respiratory : good bilateral air entry, no basal crackles Gastrointestinal: soft, lax, Normal bowel sounds, Non tender Skin : Warm, Dry Neurological : Alert & oriented x3, No focal deficit DS: Data Data Completed and Pending Labs on day of discharge: Laboratory Results - last 24 hr 05/25/24 06:02 B-Natriuretic Peptide 1974 H Imaging Chest x-ray: Radiologist's impression: ITS Impressions Chest X-Ray 05/23/24 22:03 IMPRESSION: Pulmonary vascular congestion and perihilar increased markings suggestive of mild CHF. Electronically signed by: Danny Burnett MD 05/23/2024 11:48 PM [facility] Discharge Plan Discharge Anticipated Discharge Date/Time: 05/25/24 11:58 Patient Disposition: Home, Self-Care Discharge Diagnosis: HEart failure exacerbation Referrals: Lorna Nice MD [Primary Care Provider] - 1 Week Discharge Medications: Continued albuterol sulfate 90 mcg/actuation HFA aerosol inhaler 2 puff inhalation Q6H PRN (Reason: shortness of breath or wheezing) Qty: 8.5 0RF carvedilol 6.25 mg tablet 1 tab PO BID spironolactone 25 mg tablet 1 tab PO DAILY sacubitril-valsartan [Entresto] 24-26 mg tablet 1 tab PO BID rosuvastatin 40 mg tablet 1 tab PO DAILY Jardiance 10 mg Tablet 10 mg PO DAILY 30 Days Qty: 30 0RF furosemide 20 mg tablet 20 mg PO DAILY Qty: 90 0RF ezetimibe 10 mg tablet 10 mg PO DAILY sertraline 50 mg tablet 50 mg PO DAILY PRN (Reason: mood) acetaminophen 500 mg capsule 1,000 mg PO Q6H PRN (Reason: pain) Qty: 30 0RF Discharge Orders: Discharge Order (Routine); Ordered 05/25/24 Ordered By: Kati Newman Diet: Low salt diet Activity on Discharge: As tolerated Stand Alone Forms: Patient Portal Discharge page Print Language: Upper Sorbian Care Plan Goals: Monitor sodium and water intake Start Lasix daily Follow with cardiology as outpatient Health Concerns: HEart failure exacerbation Plan of Treatment: Fluid management Assessment: as above
--- NOTE | 2024-05-25 12:34 | MHC.CM.PN ---
Pt has been medically cleared for DC, she will go home via private transport, plan is self care.
== END 2024-05-25 12:30 | disposition home or self-care (01) | DRG 291 ==
LOC: HO.ED 05-24 02:11 → HO.EDOVER 05-24 04:03 → HO.IMC 05-24 07:21
PROVIDERS: Admitting Provider Student in an Organized Health Care Education/Training Program; Emergency Provider Emergency Medicine; PCP Internal Medicine; Visit Provider Student in an Organized Health Care Education/Training Program
DX: I11.0 Hypertensive heart disease with heart failure (principal); I50.23 Acute on chronic systolic (congestive) heart failure; I42.9 Cardiomyopathy, unspecified; E78.5 Hyperlipidemia, unspecified; Z20.822 Contact with and (suspected) exposure to COVID-19; Z91.119 Patient's noncompliance with dietary regimen due to unspecified reason; Z87.891 Personal history of nicotine dependence; Z79.899 Other long term (current) drug therapy
CPT/HCPCS: 0241U; 36415; 71046; 80053; 83880; 85025; 93306; 99285; J1650; J1940; Q9957

== ENCOUNTER → 2024-05-24 03:55 | Outpatient (BNV) | payer MEDICARE, SELFPAY | PROVIDERS: Admitting Provider Student in an Organized Health Care Education/Training Program; Emergency Provider Emergency Medicine; Visit Provider Internal Medicine Cardiovascular Disease | DX: I50.9 Heart failure, unspecified (principal) | CPT/HCPCS: 99222 ==

== ENCOUNTER → 2024-05-24 03:55 | Outpatient (BNV) | payer MEDICARE, SELFPAY | PROVIDERS: Admitting Provider Student in an Organized Health Care Education/Training Program; Emergency Provider Emergency Medicine; Visit Provider Student in an Organized Health Care Education/Training Program | DX: I50.9 Heart failure, unspecified (principal) | CPT/HCPCS: 99239 ==

== ENCOUNTER 2024-06-25 06:57 | Emergency (ER) | payer MEDICARE, MEDICAID, SELFPAY ==
--- NOTE | ~2024-06-25 | XR_ITS ---
EXAMINATION: XR FOOT, LEFT CLINICAL INFORMATION: fall down stairs COMPARISON: None available. TECHNIQUE: AP, lateral, and oblique views of the left foot. FINDINGS: The metatarsals are intact. The phalanges are intact. The tarsal bones are intact. There is a well-corticated calcification inferior to the lateral malleolus. No subcutaneous emphysema. No metallic or radiopaque foreign body. XR/XR foot LT min 3V IMPRESSION: No acute fracture or dislocation, left foot. Probable old trauma, lateral malleolus. Electronically signed by: Jr Lyles MD 06/25/2024 10:10 AM [facility]
--- NOTE | ~2024-06-25 | XR_ITS ---
EXAMINATION: XR ANKLE, LEFT CLINICAL INFORMATION: fall , pain COMPARISON: None available. TECHNIQUE: AP, lateral, and mortise views of the left ankle. FINDINGS: No acute fracture, dislocation, or suspicious bone lesion. There is a corticated osseous density abutting the tip of the lateral malleolus, likely representing old healed trauma. The mortise is intact. The talar dome appears normal. There is normal alignment. Subtalar joints and calcaneus appear normal. Soft tissues demonstrate minimal lateral soft tissue swelling. There is no ankle joint effusion. XR/XR ankle LT min 3V IMPRESSION: No acute fracture or dislocation left ankle. Electronically signed by: Francisco Landrum MD 06/25/2024 10:46 AM [facility]
--- NOTE | ~2024-06-25 | XR_ITS ---
EXAMINATION: X-ray left tibia and fibula. CLINICAL INFORMATION: Status post fall. COMPARISON: No priors. TECHNIQUE: AP and lateral views. FINDINGS: No acute cortical disruption. No metallic or radiopaque foreign body. Well-corticated calcification anterior to the lateral malleolus. XR/XR tibia fibula LT 2V IMPRESSION: No acute fracture. Recommend dedicated left ankle x-ray for possible old traumatic injury lateral malleolus. Electronically signed by: Jr Lyles MD 06/25/2024 09:57 AM EST
--- NOTE | ~2024-06-25 | XR_ITS ---
EXAMINATION: XR LUMBOSACRAL SPINE CLINICAL INFORMATION: low back pain s/p fall COMPARISON: None available. TECHNIQUE: Three views of the lumbosacral spine. FINDINGS: Endplate sclerosis at multiple levels. Questionable grade 1 retrolisthesis L3-4. No gross acute cortical disruption. S-shaped curvature of the thoracolumbar spine. No lytic or blastic lesions. Probable vascular calcifications in the left upper quadrant abdomen, splenic artery. Vascular calcifications anterior to the lumbar spine likely abdominal aorta.. XR/XR lumbar spine 2-3V IMPRESSION: Multilevel thoracolumbar spondylosis with questionable grade 1 retrolisthesis L3-4. Atherosclerosis disease. Electronically signed by: Jr Lyles MD 06/25/2024 10:08 AM [facility]
[2024-06-25 07:07] VITALS: BP 140/75; PULSE 97; RESP 20; TEMP 36.7; O2SAT 94; BMI 29.2
[2024-06-25] MEDS: Acetaminophen 325 MG TABLET 650 MG PO (09:34)
[2024-06-25] MEDS: Cyclobenzaprine HCl 10 MG TABLET PO (09:35)
--- NOTE | 2024-06-25 11:13 | ED.FALL ---
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 Has been ambulatory with pain after incident. Denies anticoagulation use. Denies symptoms prior to fall. Denies lightheadedness, nausea, vomiting, CP/SOB Related Data Home Medications ?Medication ?Instructions ?Recorded ?Confirmed carvedilol 6.25 mg tablet 1 tab PO BID 05/25/22 05/24/24 rosuvastatin 40 mg tablet 1 tab PO DAILY 05/25/22 05/24/24 sacubitril 24 mg-valsartan 26 mg 1 tab PO BID 05/25/22 05/24/24 tablet (Entresto) spironolactone 25 mg tablet 1 tab PO DAILY 05/25/22 05/24/24 ezetimibe 10 mg tablet 10 mg PO DAILY 12/28/23 05/24/24 sertraline 50 mg tablet 50 mg PO DAILY PRN mood 12/28/23 05/24/24 Previous Rx's ?Medication ?Instructions ?Recorded albuterol sulfate 90 mcg/actuation 2 puff inhalation Q6H PRN 05/24/22 aerosol inhaler shortness of breath or wheezing #8.5 grams empagliflozin 10 mg tablet 10 mg PO DAILY 30 days #30 tabs 05/27/22 (Jardiance) acetaminophen 500 mg capsule 1,000 mg (2 x 500 mg) PO Q6H PRN 12/28/23 pain #30 caps furosemide 20 mg tablet 20 mg PO DAILY #90 tabs 05/25/24 Allergies Allergy/AdvReac Type Severity Reaction Status Date / Time No Known Allergies Allergy Verified 06/25/24 07:10 [No Known Allergies*] Review of Systems Review of Systems: Yes all other systems are reviewed and are negative Constitutional: Constitutional: Reports as per HPI [facility] Past Medical History Attestation statement: The following information was validated with the patient. Source: old records reviewed Medical History Hyperlipidemia Hypertension CHF (congestive heart failure) Surgical History No pertinent past surgical history Social History Social History Household Members: None Housing: Apartment Do you presently have visiting nurse or other home services: No Alcohol intake: never Patient Tobacco Use Status: Former Tobacco user Advance Directives: No Advance Directives Information Provided: Yes service: No Current occupational status: disabled Physical Exam Vital Signs: Vital Signs: Last Vital Signs Temp 98.1 F 06/25/24 07:07 Pulse 97 06/25/24 07:07 Resp 20 06/25/24 07:07 BP 140/75 H 06/25/24 07:07 Pulse Ox 94 06/25/24 07:07 O2 Del Method Room Air 06/25/24 07:07 BMI result Body Mass Index 29.2 Const: General: cooperative, healthy appearing and no acute distress Orientation/consciousness: patient oriented x3 Limitations: no limitations HEENT: Head: Yes normal to inspection and Yes atraumatic Ears: hearing grossly normal bilaterally General nose exam: Normal external nose present Face and sinus: Yes normal facial exam Eyes: General: appearance normal, both eyes and all related structures EOM: EOMs intact bilaterally Neck: Neck: Yes normal visual inspection and Yes no meningeal signs Resp: Effort & Inspection: normal respiratory effort and no respiratory distress Auscultation: clear to auscultation bilaterally Cardio: Rate: regular rate Heart sounds: S1 normal heart sound present and S2 normal heart sound present GI: Inspection: Yes normal to inspection Palpation (GI): Soft to palpation, nontender, no guarding and not rigid Back/Spine/Pelvis: Other: No midline cervical/thoracic/lumbar spinous tenderness/step-off or deformity. + mild bilateral paraspinal lumbar reproducible tenderness to palpation. No ecchymosis/erythema or deformity. Skin: Rashes: no rashes Wounds: no wounds Neuro: Other: Strength intact throughout. No saddle anesthesia. Sensation intact to light touch. Neurovascular intact distally General: patient oriented x3, tone normal, moves all extremities, no meningeal signs and no focal motor deficits Gait exam (Neuro): Normal gait present Motor exam (neuro): 5/5 motor strength present throughout Extrem: Other: Left knee without appreciable swelling. Mildly tender to palpation. Limited full flexion secondary to pain. Lower tib/fib with mild swelling and tenderness Left ankle with appreciable swelling and diffuse tenderness. Proximal foot with swelling and tenderness. Limited ROM to ankle and foot secondary to pain. Neurovascularly intact. No crepitus. General: Yes normal to inspection Course Course Course Narrative: XR ankle LT min 3V IMPRESSION: No acute fracture or dislocation left ankle. XR lumbar spine 2-3V IMPRESSION: Multilevel thoracolumbar spondylosis with questionable grade 1 retrolisthesis L3-4. Atherosclerosis disease. XR foot LT min 3V IMPRESSION: No acute fracture or dislocation, left foot. Probable old trauma, lateral malleolus. XR tibia fibula LT 2V IMPRESSION: No acute fracture. Recommend dedicated left ankle x-ray for possible old traumatic injury lateral malleolus. > Isac wrap applied to left ankle/foot. >> ambulating w/steady gait in the ED Results discussed with patient including worrisome signs and symptoms and strict return precautions, and when to return to the emergency department. They verbalized understanding and feel safe for discharge at this time. Medications Administered Discontinued Medications Generic Name Dose Route Start Last Admin Trade Name Kadenq PRN Reason Stop Dose Admin Acetaminophen 650 mg 06/25/24 09:28 06/25/24 09:34 Acetaminophen 325 Mg Tablet PO 06/25/24 09:29 650 mg ONCE ONE Administration Cyclobenzaprine HCl 10 mg 06/25/24 09:28 06/25/24 09:35 Cyclobenzaprine Hcl 10 Mg Tablet PO 06/25/24 09:29 10 mg ONCE ONE Administration Medical Decision Making Medical Decision Making [facility] Narrative: 64-year-old female with a past medical history of CHF, HTN, HLD, presenting to the ED complaining of left foot/ankle, tib-fib, knee, and low back pain 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 No midline spinous tenderness throughout or red flag symptoms. Concern for fractures vs sprain vs tendon/ligamental injury. Low suspicion for dislocation. Unlikely ICH. No evidence of septic joint/arthritis Plan: X-rays, pain control Please refer to course for remaining clinical decision making, interpretation of labs/imaging results, and discussions with consultants and/or family members. Differential Diagnosis Differential Diagnoses: The differential diagnosis associated with the presentation includes As above Admission/Observation Consideration of admission/observation: Escalation of care including admission/observation considered Lab Data MDM Lab Attestation statement: I reviewed the patient's lab results. Independent Interpretation I performed an independent interpretation of an: Plain X-Ray Radiology Impression Discussion of test interpretation with radiology: I have reviewed the radiologist's reading. External Record Review External record reviewed: Inpatient record, Office record, Outpatient record, Prior outpatient labs, Prior outpatient radiology, Primary care record and Outside ED record Tests considered The following testing was considered but not selected: As above Prescription Management I considered prescription management with: Pain Medication Social Determinants Patient?s care significantly limited by Social Determinants of Health including: Other Social Determinant of Health Discharge Plan Discharge Clinical Impression: Ankle sprain, Acute knee pain, Low back pain, Fall Patient Disposition: Home, Self-Care Instructions: Ankle Sprain (DC), Arthralgia (ED), Fall Prevention (ED) Additional Instructions: Your x-rays do not show any acute fractures. You likely sprained her ankle/med/knee Wear Isac wrap for comfort and stability/compression Ice and elevate Take ibuprofen / Tylenol at home for pain/swelling Follow-up with her doctor If pain persists or worsens/pain becomes unbearable return to the emergency department Prescriptions: No Action albuterol sulfate 90 mcg/actuation HFA aerosol inhaler 2 puff inhalation Q6H PRN (Reason: shortness of breath or wheezing) Qty: 8.5 0RF carvedilol 6.25 mg tablet 1 tab PO BID spironolactone 25 mg tablet 1 tab PO DAILY sacubitril-valsartan [Entresto] 24-26 mg tablet 1 tab PO BID rosuvastatin 40 mg tablet 1 tab PO DAILY Jardiance 10 mg Tablet 10 mg PO DAILY 30 Days Qty: 30 0RF furosemide 20 mg tablet 20 mg PO DAILY Qty: 90 0RF ezetimibe 10 mg tablet 10 mg PO DAILY sertraline 50 mg tablet 50 mg PO DAILY PRN (Reason: mood) acetaminophen 500 mg capsule 1,000 mg PO Q6H PRN (Reason: pain) Qty: 30 0RF Referrals: Lorna Nice MD [Primary Care Provider] - 5 days Print Language: Comoran
[2024-06-25 11:34] VITALS: BP 114/79; PULSE 85; RESP 16; TEMP 36.9; O2SAT 96
== END 2024-06-25 11:35 | disposition home or self-care (01) ==
PROVIDERS: Emergency Provider Emergency Medicine Emergency Medical Services; PCP Internal Medicine
DX: S93.402A Sprain of unspecified ligament of left ankle, initial encounter (principal); W10.8XXA Fall (on) (from) other stairs and steps, initial encounter; M25.562 Pain in left knee; M54.50 Low back pain, unspecified; Y93.9 Activity, unspecified; Y92.9 Unspecified place or not applicable; Y99.9 Unspecified external cause status
CPT/HCPCS: 72100; 73590; 73610; 73630; 99283

== ENCOUNTER → 2024-06-25 08:40 | Outpatient (BNV) | payer MEDICARE, MEDICAID, SELFPAY | PROVIDERS: PCP Internal Medicine; Visit Provider Radiology Diagnostic Radiology | DX: M54.50 Low back pain, unspecified (principal); M25.572 Pain in left ankle and joints of left foot; M79.672 Pain in left foot; M79.605 Pain in left leg | CPT/HCPCS: 72100; 73590; 73610; 73630 ==